=== PATIENT | male | born 1965 | race Caucasian/White ===

== ENCOUNTER 2016-06-29 13:39 | Emergency (ER) | payer MEDICARE, MEDICAID ==
[2016-06-29 14:44] LABS: BASO # 0.1 K/mm3 (0.0-0.2); BASO % 1.1 % (0.0-1.0); EOS # 0.2 K/mm3 (0.0-0.50); EOS % 4.3 % (0.0-3.0); LARGE UNSTAINED CELL # 0.1 K/mm3 (0.0-0.4); LYMPH # 1.2 K/mm3 (1.5-4.5); LYMPH % 22.2 % (24.0-44.0); MEAN CORPUSCULAR HEMOGLOBIN 30.1 pg (27.0-33.0); MEAN CORPUSCULAR HGB CONC 32.6 g/dl (32.0-36.5); MEAN CORPUSCULAR VOLUME 92.5 fl (80.0-96.0); MONO # 0.3 K/mm3 (0.0-0.8); MONO % 4.9 % (0.0-5.0); NEUTROPHILS # 3.5 K/mm3 (1.8-7.7); NEUTROPHILS % 66.4 % (36.0-66.0); PLATELET COUNT, AUTOMATED 115 k/mm3 (150-450); RED CELL DISTRIBUTION WIDTH 14.3 % (11.5-14.5); WHITE BLOOD COUNT 5.3 K/mm3 (4.0-10.0)
[2016-06-29 15:14] LABS: AMPHETAMINES LEVEL URINE NEGATIVE (NEGATIVE); BENZODIAZEPINES URINE POSITIVE (NEGATIVE); COCAINE METABOLITE URINE NEGATIVE (NEGATIVE); CONTROL LINE INT CTR LINE PRESENT; METHADONE URINE NEGATIVE (NEGATIVE); OPIATES URINE NEGATIVE (NEGATIVE); TRICYCLIC ANTIDEPRESS URINE NEGATIVE (NEGATIVE)
[2016-06-29 15:15] LABS: ALBUMIN 3.7 GM/DL (3.2-5.2); ALBUMIN/GLOBULIN RATIO 1.12 (1.00-1.93); ALKALINE PHOSPHATASE 111 U/L (45-117); ALT/SGPT 31 U/L (12-78); ANION GAP 7 MEQ/L (8-16); AST/SGOT 27 U/L (15-37); BILIRUBIN,DIRECT < 0.1 MG/DL (0.0-0.2); BILIRUBIN,TOTAL 0.3 MG/DL (0.2-1.0); BLOOD UREA NITROGEN 13 MG/DL (7-18); CALCIUM LEVEL 8.5 MG/DL (8.5-10.1); CARBON DIOXIDE LEVEL 30 MEQ/L (21-32); CHLORIDE LEVEL 105 MEQ/L (98-107); CREATININE FOR GFR 0.81 MG/DL (0.70-1.30); GLOMERULAR FILTRATION RATE > 60.0 (>56); GLUCOSE, FASTING 93 MG/DL (70-105); POTASSIUM SERUM 4.2 MEQ/L (3.5-5.1); SODIUM LEVEL 142 MEQ/L (136-145)
[2016-06-29] MEDS ORDERED: LORazepam 2 MG/ML VIAL (J2060) As Ordered ONE (15:21)
--- NOTE | 2016-06-29 16:20 | EDDOCDS ---
Physician Documentation [facility] Name: Tyler Mulligan Age: 50 yrs Sex: Male : 1965 Arrival Date: 06/29/2016 Time: 13:39 Bed 9 Private MD: Cristo Rick A. Disposition: 06/29/16 16:01 Discharged to Home/Self Care. Impression: Epilepsy and recurrent seizures. - Condition is Stable. - Discharge Instructions: Seizure, Adult, [id number]. - Medication Reconciliation, Local Pharmacy Hours form. - Follow up: Ly Diaz; When: Call to arrange an appointment; Reason: Continuance of care. - Problem is new. - Symptoms are unchanged. Historical: - Allergies: sulfamyloncream; quell lotion; - Home Meds: 1. Paxil 40 mg Oral tab 1 tab once daily 2. Prilosec 40 mg Oral cpDR 1 cap nightly 3. Mellaril 100 mg Oral tab 1 tab 4 times per day 4. Dulcolax (bisacodyl) 5 mg Oral TbEC 1 tab Q3 days PRN 5. Seroquel 100 mg Oral tab 1 tab daily 6. Ativan 1 mg Oral tab 1 tab four times a day 7. ferrous sulfate 325 mg (65 mg iron) Oral tab 325 mg daily 8. Phenergan 50 mg Oral tab 1 tab every 4 hours as needed 9. Seroquel 300 mg Oral tab 1 tab nightly 10. artane 10 mg twice a day 11. Miralax 17 gram Oral pwpk 1 packet once daily 12. Zyprexa 5 mg Oral tab 1 tab twice a day - PMHx: Anxiety; Depression; mental retardation; profound intellectual disabilities; Seizure Disorder; microencephaly; - PSHx: none; - Social history: Smoking status: unknown if patient ever smoked tobacco. nonverbal . - Family history: Not pertinent. - : The pt / caregiver states he / she is not on anticoagulants. Home medication list is obtained from the facility AUG. - Exposure Risk Screening:: None identified. Vital Signs: 06/29 13:55 BP 121 / 77 (auto/); dsf 13:56 Pulse 84 MON; Pulse Ox 93% ; dsf 14:09 Pulse 76 MON; Resp 20; Pulse Ox 94% on R/A; Pain 0/10; dsf 14:15 Temp 96.4(R); dsf 16:14 BP 115 / 82; Pulse 68; Resp 18; Temp 96.9(TE); Pulse Ox 95% on R/A; kc3 MDM: 14:19 Accucheck ordered. fg 14:19 IV Saline Lock ordered. fg 14:19 Rhythm Strip to chart ordered. fg 14:20 Acetaminophen Level Ordered. EDMS 14:20 CBC with Diff Ordered. EDMS 14:20 Drug Eval Toxicology ED Only Ordered. EDMS 14:20 Liver Profile Ordered. EDMS 14:20 MED Profile Ordered. EDMS 14:20 Salicylate Level Ordered. EDMS 14:20 Thyroid Stimulating Hormone Ordered. EDMS 14:20 Urinalysis Ordered. EDMS 14:20 Urine Culture Ordered. EDMS 14:49 Fingerstick Blood Sugar Ordered. EDMS 15:20 LORazepam 0.5 mg IVP once ordered. fg 15:40 Chest, 1 View Ordered. EDMS 15:53 [facility] Payment Agreement was scanned into [employer] and attached to record. [facility] 15:53 Financial registration complete. [facility] Point of Care Testing: Blood Glucose: 14:29 Blood Glucose: 93 mg/dL; dsf Ranges: Administered Medications: 15:26 Drug: LORazepam 0.5 mg [lorazepam 2 mg/mL injection solution (0.25 mL)] Route: IVP; dsf Site: left antecubital; Signatures: Dispatcher [employer] Fallon Lemus RN RN dsSherie Gauthier RN RN ms18 Rebeka Wills MD MD fg Beck, Gabriela gjb The chart was reviewed and I authenticate all verbal orders and agree with the evaluation and treatment provided.Attachments: 15:53 [facility] Payment Agreement [facility] MTDD
--- NOTE | 2016-06-29 16:20 | EDDOCDS ---
Nurse's Notes [facility] Name: Tyler Mulligan Age: 50 yrs Sex: Male : 1965 Arrival Date: 06/29/2016 Time: 13:39 Bed 9 Private MD: Cristo Rick A. Diagnosis: Epilepsy and recurrent seizures Presentation: 06/29 13:45 Presenting complaint: EMS states: pt has a HX of seizure. according to children's zoo caretaker pt dsf has not had a seizure in 20 years and does not take any medication for it. pt did have 2 seizures. EMS gave versed 5 mg. intranasally no seizure activity since then. FSBS 126. Suicide/Homicide risk assessment- the patient denies having any suicidal and/or homicidal ideations and does not present with any other emotional, behavioral or mental health complaints. Status: Patient is not a service supervisor or dependent. Transition of care: patient was not received from another setting of care. Care prior to arrival: See EMS report. Medications administered prior to arrival: versed 5 mg Saline lock initiated. Glucose check. 126. 13:45 Acuity: CHANNING Level 3 dsf 13:45 Method Of Arrival: Ambulance dsf 16:18 Adult Sepsis Screening: The patient does not have new or worsening altered mentation. ms18 Patient's respiratory rate is less than 22. Systolic blood pressure is greater than 100. Patient has a qSOFA score of 0- Negative Sepsis Screen. Triage Assessment: 13:49 General: Appears in no apparent distress, Behavior is postictal . Pain: Unable to use dsf pain scale. Does not appear to understand pain scale. FLACC scale score is 0 out of 10. HIV screening NA for this visit Offered previously. 13:49 The patient is triaged at the bedside. See Assessment in Nurses Notes section of ED dsf record. Neurological: Level of Consciousness is lethargic. Cardiovascular: Capillary refill < 3 seconds Heart tones S1 S2 present. Respiratory: Airway is patent Respiratory effort is even, unlabored, Respiratory pattern is regular, symmetrical, Breath sounds are clear bilaterally. GI: Abdomen is non- distended Bowel sounds present X 4 quads. Abd is soft and non tender X 4 quads. Derm: Skin is pink, warm & dry. Historical: - Allergies: sulfamyloncream; quell lotion; - Home Meds: 1. Paxil 40 mg Oral tab 1 tab once daily 2. Prilosec 40 mg Oral cpDR 1 cap nightly 3. Mellaril 100 mg Oral tab 1 tab 4 times per day 4. Dulcolax (bisacodyl) 5 mg Oral TbEC 1 tab Q3 days PRN 5. Seroquel 100 mg Oral tab 1 tab daily 6. Ativan 1 mg Oral tab 1 tab four times a day 7. ferrous sulfate 325 mg (65 mg iron) Oral tab 325 mg daily 8. Phenergan 50 mg Oral tab 1 tab every 4 hours as needed 9. Seroquel 300 mg Oral tab 1 tab nightly 10. artane 10 mg twice a day 11. Miralax 17 gram Oral pwpk 1 packet once daily 12. Zyprexa 5 mg Oral tab 1 tab twice a day - PMHx: Anxiety; Depression; mental retardation; profound intellectual disabilities; Seizure Disorder; microencephaly; - PSHx: none; - Social history: Smoking status: unknown if patient ever smoked tobacco. nonverbal . - Family history: Not pertinent. - : The pt / caregiver states he / she is not on anticoagulants. Home medication list is obtained from the facility AUG. - Exposure Risk Screening:: None identified. Screenin:16 Screening information is obtained from the caregiver, residence staff. Fall risk: At ms18 risk due to apparent cognitive impairment. Assistance ADL's: Requires assistance with. Abuse/DV Screen: The patient / caregiver reports he/she is: not in a situation that causes fear, pain or injury. Nutritional screening: No deficits noted. Advance Directives: Currently, there is a health care proxy, JRC. home support is adequate. Assessment: 13:49 General: see triage assessment . dsf 14:31 General: Appears in no apparent distress, to be sleeping. Neurological:. dsf Cardiovascular: Capillary refill < 3 seconds. Respiratory: Airway is patent Respiratory effort is even, unlabored, Respiratory pattern is regular, symmetrical. Derm: Skin is pink, warm & dry. 15:26 General: pt agitated ripping things off trying to kick staff. New orders received from f Dr. Wills. 15:40 Adult Sepsis Screening: The patient does not have new or worsening altered mentation. dsf Patient's respiratory rate is less than 22. Systolic blood pressure is greater than 100. Patient has a qSOFA score of 0- Negative Sepsis Screen. General: Pt more relaxed and resting quietly. respirations easy and unlabored. [facility] staff member at bedside . 16:16 General: Appears in no apparent distress, comfortable, Behavior is cooperative, quiet. ms18 Pain: Unable to use pain scale. Does not appear to understand pain scale. Neurological: Level of Consciousness is awake, alert. Respiratory: Airway is patent Respiratory effort is even, unlabored. Derm: Skin is pink, warm & dry. Vital Signs: 13:55 BP 121 / 77 (auto/); dsf 13:56 Pulse 84 MON; Pulse Ox 93% ; dsf 14:09 Pulse 76 MON; Resp 20; Pulse Ox 94% on R/A; Pain 0/10; dsf 14:15 Temp 96.4(R); dsf 16:14 BP 115 / 82; Pulse 68; Resp 18; Temp 96.9(TE); Pulse Ox 95% on R/A; kc3 Vitals: 13:49 Log In Time N/A - ambulance arrival. dsf ED Course: 13:40 Patient visited by Cecil Barrientos PCA. jrd 13:40 Estefani Jara,RN is Primary Nurse. jrd 13:40 Patient moved to Waiting jrd 13:40 Patient moved to 9 jrd 13:41 Cristo Rick is Private Physician. jrd 13:49 Triage Initiated dsf 13:51 The patient / caregiver is instructed regarding the plan of care and ED course. Patient dsf has correct armband on for positive identification. Placed in gown. Bed in low position. Call light in reach. Side rails up X2. shelter monitor on. Pulse ox on. NIBP on. 13:51 Seizure precautions initiated. dsf 13:51 Maintain field IV. Dressing intact. Good blood return noted. Site clean & dry. Gauge & dsf site: #18 gauge LAC. 14:18 Rebeka Wills MD is Attending Physician. fg 14:31 Patient visited by Fallon Sheldon RN. dsf 14:40 Patient visited by Rebeka Wills MD. fg 14:43 Urine Culture Sent. dsf 14:43 Urinalysis Sent. dsf 14:43 Drug Eval Toxicology ED Only Sent. dsf 15:41 Patient visited by Sherie Cormier RN. ms18 15:41 Patient visited by Fallon Sheldon RN. dsf 15:53 [facility] Payment Agreement was scanned into [employer] and attached to record. gjb 16:00 Ly Diaz is Referral Physician. fg 16:16 Property :Personal belongings accompany Pt. ms18 16:16 Discontinued IV lock intact, bleeding controlled, pressure dressing applied, No ms18 redness/swelling at site. No procedures done that require assistance. Administered Medications: 15:26 Drug: LORazepam 0.5 mg [lorazepam 2 mg/mL injection solution (0.25 mL)] Route: IVP; dsf Site: left antecubital; Point of Care Testing: Blood Glucose: 14:29 Blood Glucose: 93 mg/dL; dsf Ranges: Order Results: Lab Order: Acetaminophen Level; SPEC'M 06/29/16 14:33 Test: ACETAMINOPHEN LEVEL; Value: < 2.0; Range: 10.0-30.0; Abnormal: Below low normal; Units: UG/ML; Status: F Lab Order: CBC with Diff; SPEC'M 06/29/16 14:33 Test: WHITE BLOOD COUNT; Value: 5.3; Range: 4.0-10.0; Units: K/mm3; Status: F Test: RED BLOOD COUNT; Value: 4.24; Range: 4.30-6.10; Abnormal: Below low normal; Units: M/mm3; Status: F Test: HEMOGLOBIN; Value: 12.8; Range: 14.0-18.0; Abnormal: Below low normal; Units: g/dl; Status: F Test: HEMATOCRIT; Value: 39.3; Range: 42.0-52.0; Abnormal: Below low normal; Units: %; Status: F Test: MEAN CORPUSCULAR VOLUME; Value: 92.5; Range: 80.0-96.0; Units: fl; Status: F Test: MEAN CORPUSCULAR HEMOGLOBIN; Value: 30.1; Range: 27.0-33.0; Units: pg; Status: F Test: MEAN CORPUSCULAR HGB CONC; Value: 32.6; Range: 32.0-36.5; Units: g/dl; Status: F Test: RED CELL DISTRIBUTION WIDTH; Value: 14.3; Range: 11.5-14.5; Units: %; Status: F Test: PLATELET COUNT, AUTOMATED; Value: 115; Range: 150-450; Abnormal: Below low normal; Units: k/mm3; Status: F Test: NEUTROPHILS %; Value: 66.4; Range: 36.0-66.0; Abnormal: Above high normal; Units: %; Status: F Test: LYMPH %; Value: 22.2; Range: 24.0-44.0; Abnormal: Below low normal; Units: %; Status: F Test: MONO %; Value: 4.9; Range: 0.0-5.0; Units: %; Status: F Test: EOS %; Value: 4.3; Range: 0.0-3.0; Abnormal: Above high normal; Units: %; Status: F Test: BASO %; Value: 1.1; Range: 0.0-1.0; Abnormal: Above high normal; Units: %; Status: F Test: LARGE UNSTAINED CELL %; Value: 1.0; Range: 0.0-4.0; Units: %; Status: F Test: NEUTROPHILS #; Value: 3.5; Range: 1.8-7.7; Units: K/mm3; Status: F Test: LYMPH #; Value: 1.2; Range: 1.5-4.5; Abnormal: Below low normal; Units: K/mm3; Status: F Test: MONO #; Value: 0.3; Range: 0.0-0.8; Units: K/mm3; Status: F Test: EOS #; Value: 0.2; Range: 0.0-0.50; Units: K/mm3; Status: F Test: BASO #; Value: 0.1; Range: 0.0-0.2; Units: K/mm3; Status: F Test: LARGE UNSTAINED CELL #; Value: 0.1; Range: 0.0-0.4; Units: K/mm3; Status: F Lab Order: Drug Eval Toxicology ED Only; SPEC'M 06/29/16 14:42 Test: AMPHETAMINES LEVEL URINE; Value: NEGATIVE; Range: NEGATIVE; Status: F Test: BARBITURATES URINE; Value: NEGATIVE; Range: NEGATIVE; Status: F Test: BENZODIAZEPINES URINE; Value: POSITIVE; Range: NEGATIVE; Abnormal: Above high normal; Status: F Test: CANNABINOIDS URINE; Value: NEGATIVE; Range: NEGATIVE; Status: F Test: COCAINE METABOLITE URINE; Value: NEGATIVE; Range: NEGATIVE; Status: F Test: METHADONE URINE; Value: NEGATIVE; Range: NEGATIVE; Status: F Test: OPIATES URINE; Value: NEGATIVE; Range: NEGATIVE; Status: F Test: TRICYCLIC ANTIDEPRESS URINE; Value: NEGATIVE; Range: NEGATIVE; Status: F Test Note: ; ALL PRESUMPTIVE POSITIVE FINDINGS ARE UNCONFIRMED NORMAL VALUES THRESHOLD IN NG/ML AMPHETAMINES 1000 METHAMPHETAMINES 1000 BARBITURATES 300 BENZODIAZEPINES 300 CANNABINOIDS (THC) 50 COCAINE METABOLITE 300 METHADONE 300 OPIATES 300 PHENCYCLIDINE 25 TRICYCLIC ANTIDEPRESSANTS 1000 RESULTS ARE FOR MEDICAL PURPOSES ONLY. ALL URINE SPECIMENS WILL BE SAVED FOR 3 DAYS. IF CONFIRMATION OF A PRESUMPTIVE POSTIVE SCREEN RESULT IS DESIRED, CALL CHEMISTRY ([phone]) AND REQUEST URINE TO BE SENT TO REFERENCE LAB. FOR A LIST OF CLOSELY RELATED COMPOUNDS PLEASE CALL THE LAB. Lab Order: Liver Profile; SPEC'M 06/29/16 14:33 Test: AST/SGOT; Value: 27; Range: 15-37; Units: U/L; Status: F Test: ALT/SGPT; Value: 31; Range: 12-78; Units: U/L; Status: F Test: ALKALINE PHOSPHATASE; Value: 111; Range: 45-117; Units: U/L; Status: F Test: BILIRUBIN,TOTAL; Value: 0.3; Range: 0.2-1.0; Units: MG/DL; Status: F Test: BILIRUBIN,DIRECT; Value: < 0.1; Range: 0.0-0.2; Units: MG/DL; Status: F Test: TOTAL PROTEIN; Value: 7.0; Range: 6.4-8.2; Units: GM/DL; Status: F Test: ALBUMIN; Value: 3.7; Range: 3.2-5.2; Units: GM/DL; Status: F Test: ALBUMIN/GLOBULIN RATIO; Value: 1.12; Range: 1.00-1.93; Status: F Lab Order: MED Profile; SPEC'M 06/29/16 14:33 Test: GLUCOSE, FASTING; Value: 93; Range: 70-105; Units: MG/DL; Status: F Test: BLOOD UREA NITROGEN; Value: 13; Range: 7-18; Units: MG/DL; Status: F Test: CREATININE FOR GFR; Value: 0.81; Range: 0.70-1.30; Units: MG/DL; Status: F Test: GLOMERULAR FILTRATION RATE; Value: > 60.0; Range: >56; Status: F Test: SODIUM LEVEL; Value: 142; Range: 136-145; Units: MEQ/L; Status: F Test: POTASSIUM SERUM; Value: 4.2; Range: 3.5-5.1; Units: MEQ/L; Status: F Test: CHLORIDE LEVEL; Value: 105; Range: 98-107; Units: MEQ/L; Status: F Test: CARBON DIOXIDE LEVEL; Value: 30; Range: 21-32; Units: MEQ/L; Status: F Test: ANION GAP; Value: 7; Range: 8-16; Abnormal: Below low normal; Units: MEQ/L; Status: F Test: CALCIUM LEVEL; Value: 8.5; Range: 8.5-10.1; Units: MG/DL; Status: F Test Note: ; Units are mL/min/1.73 m2 Chronic Kidney Disease Staging per NKF: Stage I & II GFR >=60 Normal to Mildly Decreased Stage III GFR 30-59 Moderately Decreased Stage IV GFR 15-29 Severely Decreased Stage V GFR <15 Very Little GFR Left ESRD GFR <15 on NAILER HAND Lab Order: Salicylate Level; SPEC'M 06/29/16 14:33 Test: SALICYLATE LEVEL; Value: < 1.7; Range: 5.0-30.0; Abnormal: Below low normal; Units: MG/DL; Status: F Lab Order: Thyroid Stimulating Hormone; SPEC'M 06/29/16 14:33 Test: THYROID STIMULATING HORMONE; Value: 1.740; Range: 0.358-3.740; Units: uIU/ML; Status: F Lab Order: Urinalysis; SPEC'M 06/29/16 14:42 Test: APPEARANCE, URINE; Value: CLEAR; Range: CLEAR; Status: F Test: COLOR, URINE; Value: STRAW; Range: YELLOW; Status: F Test: PH,URINE; Value: 6.0; Range: 5.0-9.0; Units: UNITS; Status: F Test: SPECIFIC GRAVITY URINE AUTO; Value: 1.005; Range: 1.002-1.035; Status: F Test: PROTEIN, URINE AUTO; Value: NEGATIVE; Range: NEGATIVE; Units: mg/dL; Status: F Test: GLUCOSE, URINE (UA) AUTO; Value: NEGATIVE; Range: NEGATIVE; Units: mg/dL; Status: F Test: KETONE, URINE AUTO; Value: NEGATIVE; Range: NEGATIVE; Units: mg/dL; Status: F Test: UROBILINOGEN, URINE AUTO; Value: 0.2; Range: 0.0-2.0; Units: mg/dL; Status: F Test: BILIRUBIN, URINE AUTO; Value: NEGATIVE; Range: NEGATIVE; Status: F Test: NITRITE, URINE AUTO; Value: NEGATIVE; Range: NEGATIVE; Status: F Test: LEUKOCYTE ESTERASE, URINE AUTO; Value: NEGATIVE; Range: NEGATIVE; Status: F Test: BLOOD, URINE BLOOD; Value: NEGATIVE; Range: NEGATIVE; Status: F Test: WBC, URINE AUTO; Value: 0; Range: 0-3; Units: /HPF; Status: F Test: RBC, URINE AUTO; Value: 0; Range: 0-3; Units: /HPF; Status: F Test: BACTERIA, URINE AUTO; Value: NEGATIVE; Range: NEGATIVE; Status: F Test: SQUAMOUS EPITHELIAL CELL UR AU; Value: 0; Range: 0-6; Units: /HPF; Status: F Test: HYALINE CAST, URINE AUTO; Value: 0; Range: 0-1; Units: /LPF; Status: F Lab Order: Fingerstick Blood Sugar; SPEC'M 06/29/16 14:29 Test: BEDSIDE GLUCOSE; Value: 93; Range: 70-105; Units: MG/DL; Status: F Outcome: 16:01 Discharge ordered by Provider. fg 16:16 Discharge Assessment: Patient awake and alert. patient administered narcotics - no. The ms18 following High Risk Discharge criteria are identified: None. Discharged to Extended Care Facility [facility]. Condition: good Condition: stable Condition: improved. Discharge instructions given to aircraft cabin cleaner, Instructed on discharge instructions, follow up and referral plans. Demonstrated understanding of instructions, Pt was receptive of discharge instructions/ teaching. CT Study completed. 16:19 Patient left the ED. ms18 Signatures: Fallon Sheldon RN RN dsf Smith, Mallory, RN RN ms18 Cecil Barrientos, [employer]EF[employer] ADVISOR Rebeka Hyde MD MD fg Crane,Josie,LESTER RN [id number] Rosa Barreto Corrections: (The following items were deleted from the chart) 13:50 13:45 Presenting complaint: EMS states: pt has a HX of seizure. according to children's zoo caretaker dsf pt has not had a seizure in 20 years and they stop his seizures mediation some time ago. pt did have 2 seizures. EMS gave versed 5 mg. intranasally no seizure activity since then. FSBS 126. dsf 13:51 13:49 General: Appears in no apparent distress, Behavior is lethargic. dsf dsf MTDD
--- NOTE | 2016-06-29 16:58 | REP ---
PORTABLE CHEST: AP portable view of the chest is performed. There is no prior study. There are low lung volumes with crowding of lung markings bilaterally. No consolidation is seen. Cardiomediastinal silhouette is grossly unremarkable but the study is limited due to patient rotation. Signed by Hilario Liao MD 06/30/2016 12:45 P
--- NOTE | 2016-07-01 17:20 | EDDOCDS ---
Nurse's Notes [facility] Name: Tyler Mulligan Age: 50 yrs Sex: Male : 1965 Arrival Date: 06/29/2016 Time: 13:39 Bed 9 Private MD: Cristo Rick A. Diagnosis: Epilepsy and recurrent seizures Presentation: 06/29 13:45 Presenting complaint: EMS states: pt has a HX of seizure. according to critical care specialist pt dsf has not had a seizure in 20 years and does not take any medication for it. pt did have 2 seizures. EMS gave versed 5 mg. intranasally no seizure activity since then. FSBS 126. Suicide/Homicide risk assessment- the patient denies having any suicidal and/or homicidal ideations and does not present with any other emotional, behavioral or mental health complaints. Status: Patient is not a shared services and outsourcing manager or dependent. Transition of care: patient was not received from another setting of care. Care prior to arrival: See EMS report. Medications administered prior to arrival: versed 5 mg Saline lock initiated. Glucose check. 126. 13:45 Acuity: CHANNING Level 3 dsf 13:45 Method Of Arrival: Ambulance dsf 16:18 Adult Sepsis Screening: The patient does not have new or worsening altered mentation. ms18 Patient's respiratory rate is less than 22. Systolic blood pressure is greater than 100. Patient has a qSOFA score of 0- Negative Sepsis Screen. Triage Assessment: 13:49 General: Appears in no apparent distress, Behavior is postictal . Pain: Unable to use dsf pain scale. Does not appear to understand pain scale. FLACC scale score is 0 out of 10. HIV screening NA for this visit Offered previously. 13:49 The patient is triaged at the bedside. See Assessment in Nurses Notes section of ED dsf record. Neurological: Level of Consciousness is lethargic. Cardiovascular: Capillary refill < 3 seconds Heart tones S1 S2 present. Respiratory: Airway is patent Respiratory effort is even, unlabored, Respiratory pattern is regular, symmetrical, Breath sounds are clear bilaterally. GI: Abdomen is non- distended Bowel sounds present X 4 quads. Abd is soft and non tender X 4 quads. Derm: Skin is pink, warm & dry. Historical: - Allergies: sulfamyloncream; quell lotion; - Home Meds: 1. Paxil 40 mg Oral tab 1 tab once daily 2. Prilosec 40 mg Oral cpDR 1 cap nightly 3. Mellaril 100 mg Oral tab 1 tab 4 times per day 4. Dulcolax (bisacodyl) 5 mg Oral TbEC 1 tab Q3 days PRN 5. Seroquel 100 mg Oral tab 1 tab daily 6. Ativan 1 mg Oral tab 1 tab four times a day 7. ferrous sulfate 325 mg (65 mg iron) Oral tab 325 mg daily 8. Phenergan 50 mg Oral tab 1 tab every 4 hours as needed 9. Seroquel 300 mg Oral tab 1 tab nightly 10. artane 10 mg twice a day 11. Miralax 17 gram Oral pwpk 1 packet once daily 12. Zyprexa 5 mg Oral tab 1 tab twice a day - PMHx: Anxiety; Depression; mental retardation; profound intellectual disabilities; Seizure Disorder; microencephaly; - PSHx: none; - Social history: Smoking status: unknown if patient ever smoked tobacco. nonverbal . - Family history: Not pertinent. - : The pt / caregiver states he / she is not on anticoagulants. Home medication list is obtained from the facility AUG. - Exposure Risk Screening:: None identified. Screenin:16 Screening information is obtained from the caregiver, residence staff. Fall risk: At ms18 risk due to apparent cognitive impairment. Assistance ADL's: Requires assistance with. Abuse/DV Screen: The patient / caregiver reports he/she is: not in a situation that causes fear, pain or injury. Nutritional screening: No deficits noted. Advance Directives: Currently, there is a health care proxy, JRC. home support is adequate. Assessment: 13:49 General: see triage assessment . dsf 14:31 General: Appears in no apparent distress, to be sleeping. Neurological:. dsf Cardiovascular: Capillary refill < 3 seconds. Respiratory: Airway is patent Respiratory effort is even, unlabored, Respiratory pattern is regular, symmetrical. Derm: Skin is pink, warm & dry. 15:26 General: pt agitated ripping things off trying to kick staff. New orders received from f Dr. Wills. 15:40 Adult Sepsis Screening: The patient does not have new or worsening altered mentation. dsf Patient's respiratory rate is less than 22. Systolic blood pressure is greater than 100. Patient has a qSOFA score of 0- Negative Sepsis Screen. General: Pt more relaxed and resting quietly. respirations easy and unlabored. [facility] staff member at bedside . 16:16 General: Appears in no apparent distress, comfortable, Behavior is cooperative, quiet. ms18 Pain: Unable to use pain scale. Does not appear to understand pain scale. Neurological: Level of Consciousness is awake, alert. Respiratory: Airway is patent Respiratory effort is even, unlabored. Derm: Skin is pink, warm & dry. Vital Signs: 13:55 BP 121 / 77 (auto/); dsf 13:56 Pulse 84 MON; Pulse Ox 93% ; dsf 14:09 Pulse 76 MON; Resp 20; Pulse Ox 94% on R/A; Pain 0/10; dsf 14:15 Temp 96.4(R); dsf 16:14 BP 115 / 82; Pulse 68; Resp 18; Temp 96.9(TE); Pulse Ox 95% on R/A; kc3 Vitals: 13:49 Log In Time N/A - ambulance arrival. dsf ED Course: 13:40 Patient visited by Cecil Barrientos PCA. jrd 13:40 Estefani Jara,RN is Primary Nurse. jrd 13:40 Patient moved to Waiting jrd 13:40 Patient moved to 9 jrd 13:41 Cristo Rick is Private Physician. jrd 13:49 Triage Initiated dsf 13:51 The patient / caregiver is instructed regarding the plan of care and ED course. Patient dsf has correct armband on for positive identification. Placed in gown. Bed in low position. Call light in reach. Side rails up X2. classroom monitor on. Pulse ox on. NIBP on. 13:51 Seizure precautions initiated. dsf 13:51 Maintain field IV. Dressing intact. Good blood return noted. Site clean & dry. Gauge & dsf site: #18 gauge LAC. 14:18 Rebeka Wills MD is Attending Physician. fg 14:31 Patient visited by Fallon Sheldon RN. dsf 14:40 Patient visited by Rebeka Wills MD. fg 14:43 Urine Culture Sent. dsf 14:43 Urinalysis Sent. dsf 14:43 Drug Eval Toxicology ED Only Sent. dsf 15:41 Patient visited by Sherie Cormier RN. ms18 15:41 Patient visited by Fallon Sheldon RN. dsf 15:53 [facility] [place] Payment Agreement was scanned into [email or web address] and attached to record. gjb 16:00 Ly Diaz is Referral Physician. fg 16:16 Property :Personal belongings accompany Pt. ms18 16:16 Discontinued IV lock intact, bleeding controlled, pressure dressing applied, No ms18 redness/swelling at site. No procedures done that require assistance. 17:13 Chest, 1 View Returned. EDMS 06/30 11:22 T-Sheet-- Draft Copy was scanned into [email or web address] and attached to record. gb Administered Medications: 06/29 15: Drug: LORazepam 0.5 mg [lorazepam 2 mg/mL injection solution (0.25 mL)] Route: IVP; dsf Site: left antecubital; Point of Care Testing: Blood Glucose: 14:29 Blood Glucose: 93 mg/dL; dsf Ranges: Order Results: Lab Order: Acetaminophen Level; SPEC'M 06/29/16 14:33 Test: ACETAMINOPHEN LEVEL; Value: < 2.0; Range: 10.0-30.0; Abnormal: Below low normal; Units: UG/ML; Status: F Lab Order: CBC with Diff; SPEC'M 06/29/16 14:33 Test: WHITE BLOOD COUNT; Value: 5.3; Range: 4.0-10.0; Units: K/mm3; Status: F Test: RED BLOOD COUNT; Value: 4.24; Range: 4.30-6.10; Abnormal: Below low normal; Units: M/mm3; Status: F Test: HEMOGLOBIN; Value: 12.8; Range: 14.0-18.0; Abnormal: Below low normal; Units: g/dl; Status: F Test: HEMATOCRIT; Value: 39.3; Range: 42.0-52.0; Abnormal: Below low normal; Units: %; Status: F Test: MEAN CORPUSCULAR VOLUME; Value: 92.5; Range: 80.0-96.0; Units: fl; Status: F Test: MEAN CORPUSCULAR HEMOGLOBIN; Value: 30.1; Range: 27.0-33.0; Units: pg; Status: F Test: MEAN CORPUSCULAR HGB CONC; Value: 32.6; Range: 32.0-36.5; Units: g/dl; Status: F Test: RED CELL DISTRIBUTION WIDTH; Value: 14.3; Range: 11.5-14.5; Units: %; Status: F Test: PLATELET COUNT, AUTOMATED; Value: 115; Range: 150-450; Abnormal: Below low normal; Units: k/mm3; Status: F Test: NEUTROPHILS %; Value: 66.4; Range: 36.0-66.0; Abnormal: Above high normal; Units: %; Status: F Test: LYMPH %; Value: 22.2; Range: 24.0-44.0; Abnormal: Below low normal; Units: %; Status: F Test: MONO %; Value: 4.9; Range: 0.0-5.0; Units: %; Status: F Test: EOS %; Value: 4.3; Range: 0.0-3.0; Abnormal: Above high normal; Units: %; Status: F Test: BASO %; Value: 1.1; Range: 0.0-1.0; Abnormal: Above high normal; Units: %; Status: F Test: LARGE UNSTAINED CELL %; Value: 1.0; Range: 0.0-4.0; Units: %; Status: F Test: NEUTROPHILS #; Value: 3.5; Range: 1.8-7.7; Units: K/mm3; Status: F Test: LYMPH #; Value: 1.2; Range: 1.5-4.5; Abnormal: Below low normal; Units: K/mm3; Status: F Test: MONO #; Value: 0.3; Range: 0.0-0.8; Units: K/mm3; Status: F Test: EOS #; Value: 0.2; Range: 0.0-0.50; Units: K/mm3; Status: F Test: BASO #; Value: 0.1; Range: 0.0-0.2; Units: K/mm3; Status: F Test: LARGE UNSTAINED CELL #; Value: 0.1; Range: 0.0-0.4; Units: K/mm3; Status: F Lab Order: Drug Eval Toxicology ED Only; SPEC'M 06/29/16 14:42 Test: AMPHETAMINES LEVEL URINE; Value: NEGATIVE; Range: NEGATIVE; Status: F Test: BARBITURATES URINE; Value: NEGATIVE; Range: NEGATIVE; Status: F Test: BENZODIAZEPINES URINE; Value: POSITIVE; Range: NEGATIVE; Abnormal: Above high normal; Status: F Test: CANNABINOIDS URINE; Value: NEGATIVE; Range: NEGATIVE; Status: F Test: COCAINE METABOLITE URINE; Value: NEGATIVE; Range: NEGATIVE; Status: F Test: METHADONE URINE; Value: NEGATIVE; Range: NEGATIVE; Status: F Test: OPIATES URINE; Value: NEGATIVE; Range: NEGATIVE; Status: F Test: TRICYCLIC ANTIDEPRESS URINE; Value: NEGATIVE; Range: NEGATIVE; Status: F Test Note: ; ALL PRESUMPTIVE POSITIVE FINDINGS ARE UNCONFIRMED NORMAL VALUES THRESHOLD IN NG/ML AMPHETAMINES 1000 METHAMPHETAMINES 1000 BARBITURATES 300 BENZODIAZEPINES 300 CANNABINOIDS (THC) 50 COCAINE METABOLITE 300 METHADONE 300 OPIATES 300 PHENCYCLIDINE 25 TRICYCLIC ANTIDEPRESSANTS 1000 RESULTS ARE FOR MEDICAL PURPOSES ONLY. ALL URINE SPECIMENS WILL BE SAVED FOR 3 DAYS. IF CONFIRMATION OF A PRESUMPTIVE POSTIVE SCREEN RESULT IS DESIRED, CALL CHEMISTRY ([phone]) AND REQUEST URINE TO BE SENT TO REFERENCE LAB. FOR A LIST OF CLOSELY RELATED COMPOUNDS PLEASE CALL THE LAB. Lab Order: Liver Profile; SPEC'M 06/29/16 14:33 Test: AST/SGOT; Value: 27; Range: 15-37; Units: U/L; Status: F Test: ALT/SGPT; Value: 31; Range: 12-78; Units: U/L; Status: F Test: ALKALINE PHOSPHATASE; Value: 111; Range: 45-117; Units: U/L; Status: F Test: BILIRUBIN,TOTAL; Value: 0.3; Range: 0.2-1.0; Units: MG/DL; Status: F Test: BILIRUBIN,DIRECT; Value: < 0.1; Range: 0.0-0.2; Units: MG/DL; Status: F Test: TOTAL PROTEIN; Value: 7.0; Range: 6.4-8.2; Units: GM/DL; Status: F Test: ALBUMIN; Value: 3.7; Range: 3.2-5.2; Units: GM/DL; Status: F Test: ALBUMIN/GLOBULIN RATIO; Value: 1.12; Range: 1.00-1.93; Status: F Lab Order: MED Profile; SPEC'M 06/29/16 14:33 Test: GLUCOSE, FASTING; Value: 93; Range: 70-105; Units: MG/DL; Status: F Test: BLOOD UREA NITROGEN; Value: 13; Range: 7-18; Units: MG/DL; Status: F Test: CREATININE FOR GFR; Value: 0.81; Range: 0.70-1.30; Units: MG/DL; Status: F Test: GLOMERULAR FILTRATION RATE; Value: > 60.0; Range: >56; Status: F Test: SODIUM LEVEL; Value: 142; Range: 136-145; Units: MEQ/L; Status: F Test: POTASSIUM SERUM; Value: 4.2; Range: 3.5-5.1; Units: MEQ/L; Status: F Test: CHLORIDE LEVEL; Value: 105; Range: 98-107; Units: MEQ/L; Status: F Test: CARBON DIOXIDE LEVEL; Value: 30; Range: 21-32; Units: MEQ/L; Status: F Test: ANION GAP; Value: 7; Range: 8-16; Abnormal: Below low normal; Units: MEQ/L; Status: F Test: CALCIUM LEVEL; Value: 8.5; Range: 8.5-10.1; Units: MG/DL; Status: F Test Note: ; Units are mL/min/1.73 m2 Chronic Kidney Disease Staging per NKF: Stage I & II GFR >=60 Normal to Mildly Decreased Stage III GFR 30-59 Moderately Decreased Stage IV GFR 15-29 Severely Decreased Stage V GFR <15 Very Little GFR Left ESRD GFR <15 on OFFICE REP Lab Order: Salicylate Level; SPEC'M 06/29/16 14:33 Test: SALICYLATE LEVEL; Value: < 1.7; Range: 5.0-30.0; Abnormal: Below low normal; Units: MG/DL; Status: F Lab Order: Thyroid Stimulating Hormone; SPEC'M 06/29/16 14:33 Test: THYROID STIMULATING HORMONE; Value: 1.740; Range: 0.358-3.740; Units: uIU/ML; Status: F Lab Order: Urinalysis; SPEC'M 06/29/16 14:42 Test: APPEARANCE, URINE; Value: CLEAR; Range: CLEAR; Status: F Test: COLOR, URINE; Value: STRAW; Range: YELLOW; Status: F Test: PH,URINE; Value: 6.0; Range: 5.0-9.0; Units: UNITS; Status: F Test: SPECIFIC GRAVITY URINE AUTO; Value: 1.005; Range: 1.002-1.035; Status: F Test: PROTEIN, URINE AUTO; Value: NEGATIVE; Range: NEGATIVE; Units: mg/dL; Status: F Test: GLUCOSE, URINE (UA) AUTO; Value: NEGATIVE; Range: NEGATIVE; Units: mg/dL; Status: F Test: KETONE, URINE AUTO; Value: NEGATIVE; Range: NEGATIVE; Units: mg/dL; Status: F Test: UROBILINOGEN, URINE AUTO; Value: 0.2; Range: 0.0-2.0; Units: mg/dL; Status: F Test: BILIRUBIN, URINE AUTO; Value: NEGATIVE; Range: NEGATIVE; Status: F Test: NITRITE, URINE AUTO; Value: NEGATIVE; Range: NEGATIVE; Status: F Test: LEUKOCYTE ESTERASE, URINE AUTO; Value: NEGATIVE; Range: NEGATIVE; Status: F Test: BLOOD, URINE BLOOD; Value: NEGATIVE; Range: NEGATIVE; Status: F Test: WBC, URINE AUTO; Value: 0; Range: 0-3; Units: /HPF; Status: F Test: RBC, URINE AUTO; Value: 0; Range: 0-3; Units: /HPF; Status: F Test: BACTERIA, URINE AUTO; Value: NEGATIVE; Range: NEGATIVE; Status: F Test: SQUAMOUS EPITHELIAL CELL UR AU; Value: 0; Range: 0-6; Units: /HPF; Status: F Test: HYALINE CAST, URINE AUTO; Value: 0; Range: 0-1; Units: /LPF; Status: F Lab Order: Urine Culture; SPEC'M 06/29/16 14:42 Test: URINE CULTURE; Value: <EXTERNAL COMMENT eCWMed> FULL REPORT IN LAB NOTES (eCW and Medent).; Status: F Test: URINE CULTURE; Value: URINE CULTURE RESULT NO GROWTH; Status: F Lab Order: Fingerstick Blood Sugar; SPEC'M 06/29/16 14:29 Test: BEDSIDE GLUCOSE; Value: 93; Range: 70-105; Units: MG/DL; Status: F Radiology Order: Chest, 1 View Test: Chest, 1 View REASON FOR EXAMINATION: Chest Pain; PORTABLE CHEST:; ; AP portable view of the chest is performed. There is no prior study. There are; low lung volumes with crowding of lung markings bilaterally. No consolidation is; seen. Cardiomediastinal silhouette is grossly unremarkable but the study is; limited due to patient rotation.; ; ; Signed by; Hilario Liao MD 06/30/2016 12:45 P; Outcome: 16:01 Discharge ordered by Provider. fg 16:16 Discharge Assessment: Patient awake and alert. patient administered narcotics - no. The ms18 following High Risk Discharge criteria are identified: None. Discharged to [facility]. Condition: good Condition: stable Condition: improved. Discharge instructions given to general manager in training, Instructed on discharge instructions, follow up and referral plans. Demonstrated understanding of instructions, Pt was receptive of discharge instructions/ teaching. CT Study completed. 16:19 Patient left the ED. ms18 Signatures: Dispatcher [employer] EDMS Vikki Marie, Reg Reg Fallon AnnaRN RN dsf Sherie Cormier RN RN ms18 Cecil Barrientos, BRUNA LEGAL BILLER Rebeka Hyde MD MD Josie Arriaga RN RN kc3 Rosa Barreto Corrections: (The following items were deleted from the chart) 13:50 13:45 Presenting complaint: EMS states: pt has a HX of seizure. according to critical care specialist dsf pt has not had a seizure in 20 years and they stop his seizures mediation some time ago. pt did have 2 seizures. EMS gave versed 5 mg. intranasally no seizure activity since then. FSBS 126. dsf 13:51 13:49 General: Appears in no apparent distress, Behavior is lethargic. dsf dsf Chart Complete MTDD
--- NOTE | 2016-07-01 17:20 | EDDOCDS ---
Physician Documentation [facility] Name: Tyler Mulligan Age: 50 yrs Sex: Male : 1965 Arrival Date: 06/29/2016 Time: 13:39 Bed 9 Private MD: Cristo Rick A. Disposition: 06/29/16 16:01 Discharged to Home/Self Care. Impression: Epilepsy and recurrent seizures. - Condition is Stable. - Discharge Instructions: Seizure, Adult, [id number]. - Medication Reconciliation, Local Pharmacy Hours form. - Follow up: Ly Diaz; When: Call to arrange an appointment; Reason: Continuance of care. - Problem is new. - Symptoms are unchanged. Historical: - Allergies: sulfamyloncream; quell lotion; - Home Meds: 1. Paxil 40 mg Oral tab 1 tab once daily 2. Prilosec 40 mg Oral cpDR 1 cap nightly 3. Mellaril 100 mg Oral tab 1 tab 4 times per day 4. Dulcolax (bisacodyl) 5 mg Oral TbEC 1 tab Q3 days PRN 5. Seroquel 100 mg Oral tab 1 tab daily 6. Ativan 1 mg Oral tab 1 tab four times a day 7. ferrous sulfate 325 mg (65 mg iron) Oral tab 325 mg daily 8. Phenergan 50 mg Oral tab 1 tab every 4 hours as needed 9. Seroquel 300 mg Oral tab 1 tab nightly 10. artane 10 mg twice a day 11. Miralax 17 gram Oral pwpk 1 packet once daily 12. Zyprexa 5 mg Oral tab 1 tab twice a day - PMHx: Anxiety; Depression; mental retardation; profound intellectual disabilities; Seizure Disorder; microencephaly; - PSHx: none; - Social history: Smoking status: unknown if patient ever smoked tobacco. nonverbal . - Family history: Not pertinent. - : The pt / caregiver states he / she is not on anticoagulants. Home medication list is obtained from the facility AUG. - Exposure Risk Screening:: None identified. Vital Signs: 06/29 13:55 BP 121 / 77 (auto/); dsf 13:56 Pulse 84 MON; Pulse Ox 93% ; dsf 14:09 Pulse 76 MON; Resp 20; Pulse Ox 94% on R/A; Pain 0/10; dsf 14:15 Temp 96.4(R); dsf 16:14 BP 115 / 82; Pulse 68; Resp 18; Temp 96.9(TE); Pulse Ox 95% on R/A; kc3 MDM: 14:19 Accucheck ordered. fg 14:19 IV Saline Lock ordered. fg 14:19 Rhythm Strip to chart ordered. fg 14:20 Acetaminophen Level Ordered. EDMS 14:20 CBC with Diff Ordered. EDMS 14:20 Drug Eval Toxicology ED Only Ordered. EDMS 14:20 Liver Profile Ordered. EDMS 14:20 MED Profile Ordered. EDMS 14:20 Salicylate Level Ordered. EDMS 14:20 Thyroid Stimulating Hormone Ordered. EDMS 14:20 Urinalysis Ordered. EDMS 14:20 Urine Culture Ordered. EDMS 14:49 Fingerstick Blood Sugar Ordered. EDMS 15:20 LORazepam 0.5 mg IVP once ordered. fg 15:40 Chest, 1 View Ordered. EDMS 15:53 [facility] [place] Payment Agreement was scanned into [employer] and attached to record. [facility] 15:53 Financial registration complete. [facility] 06/30 11:22 T-Sheet-- Draft Copy was scanned into [employer] and attached to record. gb Point of Care Testing: Blood Glucose: 06/29 14:29 Blood Glucose: 93 mg/dL; dsf Ranges: Administered Medications: 15:26 Drug: LORazepam 0.5 mg [lorazepam 2 mg/mL injection solution (0.25 mL)] Route: IVP; dsf Site: left antecubital; Signatures: Dispatcher [employer] EDMS Vikki Marie, Reg Reg Fallon Sheldon RN RN f Sherie Cormier RN RN ms18 Rebeka Wills MD MD fg Beck, Gabriela gjb The chart was reviewed and I authenticate all verbal orders and agree with the evaluation and treatment provided.Attachments: 15:53 [facility] Payment Agreement [facility] 06/30 11:22 T-Sheet-- Draft Copy Chart Complete MTDD
--- NOTE | 2016-07-01 17:20 | EDDOCDS ---
Physician Documentation [facility] Name: Tyler Mulligan Age: 50 yrs Sex: Male : 1965 Arrival Date: 06/29/2016 Time: 13:39 Bed 9 Private MD: Cristo Rick A. Disposition: 06/29/16 16:01 Discharged to Home/Self Care. Impression: Epilepsy and recurrent seizures. - Condition is Stable. - Discharge Instructions: Seizure, Adult, [id number]. - Medication Reconciliation, Local Pharmacy Hours form. - Follow up: Ly Diaz; When: Call to arrange an appointment; Reason: Continuance of care. - Problem is new. - Symptoms are unchanged. Historical: - Allergies: sulfamyloncream; quell lotion; - Home Meds: 1. Paxil 40 mg Oral tab 1 tab once daily 2. Prilosec 40 mg Oral cpDR 1 cap nightly 3. Mellaril 100 mg Oral tab 1 tab 4 times per day 4. Dulcolax (bisacodyl) 5 mg Oral TbEC 1 tab Q3 days PRN 5. Seroquel 100 mg Oral tab 1 tab daily 6. Ativan 1 mg Oral tab 1 tab four times a day 7. ferrous sulfate 325 mg (65 mg iron) Oral tab 325 mg daily 8. Phenergan 50 mg Oral tab 1 tab every 4 hours as needed 9. Seroquel 300 mg Oral tab 1 tab nightly 10. artane 10 mg twice a day 11. Miralax 17 gram Oral pwpk 1 packet once daily 12. Zyprexa 5 mg Oral tab 1 tab twice a day - PMHx: Anxiety; Depression; mental retardation; profound intellectual disabilities; Seizure Disorder; microencephaly; - PSHx: none; - Social history: Smoking status: unknown if patient ever smoked tobacco. nonverbal . - Family history: Not pertinent. - : The pt / caregiver states he / she is not on anticoagulants. Home medication list is obtained from the facility AUG. - Exposure Risk Screening:: None identified. Vital Signs: 06/29 13:55 BP 121 / 77 (auto/); dsf 13:56 Pulse 84 MON; Pulse Ox 93% ; dsf 14:09 Pulse 76 MON; Resp 20; Pulse Ox 94% on R/A; Pain 0/10; dsf 14:15 Temp 96.4(R); dsf 16:14 BP 115 / 82; Pulse 68; Resp 18; Temp 96.9(TE); Pulse Ox 95% on R/A; kc3 MDM: 14:19 Accucheck ordered. fg 14:19 IV Saline Lock ordered. fg 14:19 Rhythm Strip to chart ordered. fg 14:20 Acetaminophen Level Ordered. EDMS 14:20 CBC with Diff Ordered. EDMS 14:20 Drug Eval Toxicology ED Only Ordered. EDMS 14:20 Liver Profile Ordered. EDMS 14:20 MED Profile Ordered. EDMS 14:20 Salicylate Level Ordered. EDMS 14:20 Thyroid Stimulating Hormone Ordered. EDMS 14:20 Urinalysis Ordered. EDMS 14:20 Urine Culture Ordered. EDMS 14:49 Fingerstick Blood Sugar Ordered. EDMS 15:20 LORazepam 0.5 mg IVP once ordered. fg 15:40 Chest, 1 View Ordered. EDMS 15:53 [place] [place] Agreement was scanned into [employer] and attached to record. [facility] 15:53 Financial registration complete. [facility] 06/30 11:22 T-Sheet-- Draft Copy was scanned into [employer] and attached to record. gb Point of Care Testing: Blood Glucose: 06/29 14:29 Blood Glucose: 93 mg/dL; dsf Ranges: Administered Medications: 15:26 Drug: LORazepam 0.5 mg [lorazepam 2 mg/mL injection solution (0.25 mL)] Route: IVP; dsf Site: left antecubital; Signatures: Dispatcher [employer] EDMS Vikki Marie, Reg Reg Fallon Sheldon RN RN f Sherie Cormier RN RN ms18 Rebeka Wills MD MD fg Beck, Gabriela gjb The chart was reviewed and I authenticate all verbal orders and agree with the evaluation and treatment provided.Attachments: 15:53 [facility] Payment Agreement [facility] 06/30 11:22 T-Sheet-- Draft Copy Chart Complete MTDD
== END 2016-06-29 16:19 | disposition home or self-care (01) ==
LOC: M ED 13:39
DX: G40.909 Epilepsy, unspecified, not intractable, without status epilepticus (principal); F41.9 Anxiety disorder, unspecified; F79 Unspecified intellectual disabilities; Z79.899 Other long term (current) drug therapy; Z88.2 Allergy status to sulfonamides; Z88.8 Allergy status to other drugs, medicaments and biological substances
CPT/HCPCS: 71010; 80048; 80076; 80306; 81001; 84443; 85025; 87086; 96374; 99285; G0480; J2060

== ENCOUNTER → 2016-09-02 | Outpatient (REF) | payer MEDICARE, MEDICAID ==
[2016-09-02 14:01] LABS: ALBUMIN/GLOBULIN RATIO 1.18 (1.00-1.93); ALKALINE PHOSPHATASE 95 U/L (45-117); ALT/SGPT 27 U/L (12-78); ANION GAP 7 MEQ/L (8-16); AST/SGOT 15 U/L (15-37); BILIRUBIN,TOTAL 0.3 MG/DL (0.2-1.0); BLOOD UREA NITROGEN 10 MG/DL (7-18); CARBON DIOXIDE LEVEL 30 MEQ/L (21-32); CHLORIDE LEVEL 104 MEQ/L (98-107); CREATININE FOR GFR 0.84 MG/DL (0.70-1.30); GLOMERULAR FILTRATION RATE > 60.0 (>56); GLUCOSE, FASTING 175 MG/DL (70-105); POTASSIUM SERUM 4.8 MEQ/L (3.5-5.1); SODIUM LEVEL 141 MEQ/L (136-145); TOTAL PROTEIN 7.4 GM/DL (6.4-8.2)
[2016-09-02 14:20] LABS: BASO % 0.5 % (0.0-1.0); EOS # 0.2 K/mm3 (0.0-0.50); EOS % 6.7 % (0.0-3.0); LARGE UNSTAINED CELL # 0.1 K/mm3 (0.0-0.4); LARGE UNSTAINED CELL % 2.1 % (0.0-4.0); LYMPH % 38.2 % (24.0-44.0); MEAN CORPUSCULAR HEMOGLOBIN 31.3 pg (27.0-33.0); MEAN CORPUSCULAR HGB CONC 32.6 g/dl (32.0-36.5); MEAN CORPUSCULAR VOLUME 95.9 fl (80.0-96.0); MONO # 0.1 K/mm3 (0.0-0.8); MONO % 5.3 % (0.0-5.0); NEUTROPHILS # 1.2 K/mm3 (1.8-7.7); NEUTROPHILS % 47.3 % (36.0-66.0); PLATELET COUNT, AUTOMATED 129 k/mm3 (150-450); RED CELL DISTRIBUTION WIDTH 13.5 % (11.5-14.5); WHITE BLOOD COUNT 2.6 K/mm3 (4.0-10.0)
[2016-09-05 14:11] LABS: TOPIRAMATE LEVEL None Detected ug/mL (2.0-25.0)
== END ==
LOC: M LABNEURO 13:16
PROVIDERS: ATTEND Psychiatry & Neurology Neurology
DX: G40.309 Generalized idiopathic epilepsy and epileptic syndromes, not intractable, without status epilepticus (principal)

== ENCOUNTER 2016-09-20 15:00 | Emergency (ER) | payer MEDICARE, MEDICAID ==
[~2016-09-20] VITALS: Ht 157.5 cm; Wt 74.8 kg
[2016-09-20 15:01] VITALS: BP 126/74
== END 2016-09-20 16:06 | disposition home or self-care (01) ==
LOC: M ED 15:58
DX: S01.81XA Laceration without foreign body of other part of head, initial encounter (principal); W19.XXXA Unspecified fall, initial encounter; Y92.099 Unspecified place in other non-institutional residence as the place of occurrence of the external cause; Y93.89 Activity, other specified; Y99.9 Unspecified external cause status

== ENCOUNTER 2016-09-29 10:36 | Emergency (ER) | payer MEDICARE, MEDICAID ==
[~2016-09-29] VITALS: Ht 157.5 cm; Wt 74.8 kg
[2016-09-29] MEDS ORDERED: LEVETIRACETA (10:48)
[2016-09-29] MEDS ORDERED: OMEP20CA3 (10:48)
[2016-09-29] MEDS ORDERED: QUET1TAB8 (10:48)
[2016-09-29] MEDS ORDERED: LORA1TAB12 (10:48)
[2016-09-29] MEDS ORDERED: THIO100T2 (10:48)
[2016-09-29] MEDS ORDERED: OLAN10TA2 (10:48)
[2016-09-29] MEDS ORDERED: QUET1TAB10 (10:48)
[2016-09-29] MEDS ORDERED: PROM50TA2 (10:48)
[2016-09-29] MEDS ORDERED: TOPI1TAB31 (10:48)
[2016-09-29] MEDS ORDERED: PARO40TA2 (10:48)
[2016-09-29] MEDS ORDERED: POLY1POW4 (10:48)
[2016-09-29] MEDS ORDERED: TRIH5TAB (10:48)
[2016-09-29] MEDS ORDERED: LORazepam 2 MG/ML VIAL (J2060) IM STA (14:27)
[2016-09-29 14:52] LABS: BASO % 0.2 % (0.0-1.0); EOS # 0.1 K/mm3 (0.0-0.50); EOS % 1.8 % (0.0-3.0); LARGE UNSTAINED CELL # 0.1 K/mm3 (0.0-0.4); LARGE UNSTAINED CELL % 2.4 % (0.0-4.0); LYMPH # 1.3 K/mm3 (1.5-4.5); LYMPH % 31.4 % (24.0-44.0); MEAN CORPUSCULAR HGB CONC 33.8 g/dl (32.0-36.5); MEAN CORPUSCULAR VOLUME 94.7 fl (80.0-96.0); MONO # 0.2 K/mm3 (0.0-0.8); MONO % 5.2 % (0.0-5.0); NEUTROPHILS # 2.4 K/mm3 (1.8-7.7); PLATELET COUNT, AUTOMATED 159 k/mm3 (150-450); RED CELL DISTRIBUTION WIDTH 14.2 % (11.5-14.5)
[2016-09-29 15:26] LABS: ALBUMIN 3.9 GM/DL (3.2-5.2); ALKALINE PHOSPHATASE 107 U/L (45-117); ALT/SGPT 49 U/L (12-78); ANION GAP 8 MEQ/L (8-16); AST/SGOT 27 U/L (15-37); BILIRUBIN,DIRECT < 0.1 MG/DL (0.0-0.2); BILIRUBIN,TOTAL 0.2 MG/DL (0.2-1.0); BLOOD UREA NITROGEN 15 MG/DL (7-18); CALCIUM LEVEL 8.7 MG/DL (8.5-10.1); CARBON DIOXIDE LEVEL 27 MEQ/L (21-32); CHLORIDE LEVEL 104 MEQ/L (98-107); CREATININE FOR GFR 0.85 MG/DL (0.70-1.30); GLOMERULAR FILTRATION RATE > 60.0 (>56); GLUCOSE, FASTING 90 MG/DL (70-105); POTASSIUM SERUM 4.9 MEQ/L (3.5-5.1); SODIUM LEVEL 139 MEQ/L (136-145); TOTAL PROTEIN 7.8 GM/DL (6.4-8.2)
[2016-09-29] MEDS ORDERED: COLA100C3 PO (15:54)
[2016-09-29 16:10] VITALS: BP 123/71
== END 2016-09-29 16:15 | disposition home or self-care (01) ==
LOC: M ED 13:28
DX: K59.00 Constipation, unspecified (principal); Z79.899 Other long term (current) drug therapy; Z88.2 Allergy status to sulfonamides; Z88.8 Allergy status to other drugs, medicaments and biological substances
CPT/HCPCS: 36415; 80048; 80076; 83690; 85025; 96372; 99282; J2060

== ENCOUNTER 2016-10-31 10:44 | Emergency (ER) | payer MEDICARE, MEDICAID ==
[~2016-10-31] VITALS: Ht 157.5 cm; Wt 63.5 kg
[~2016-10-31 10:44] MED LIST: COLA100C3 PO; LEVETIRACETA; LORA1TAB12; OLAN10TA2; OMEP20CA3; PARO40TA2; POLY1POW4; PROM50TA2; QUET1TAB10; QUET1TAB8; THIO100T2; TOPI1TAB31; TRIH5TAB
[2016-10-31] MEDS ORDERED: FERR325T3 PO (11:12)
[2016-10-31] MEDS ORDERED: CARB200C5 (11:12)
[2016-10-31 12:34] LABS: BASO % 0.2 % (0.0-1.0); EOS # 0.1 K/mm3 (0.0-0.50); EOS % 0.9 % (0.0-3.0); LARGE UNSTAINED CELL # 0.1 K/mm3 (0.0-0.4); LARGE UNSTAINED CELL % 0.8 % (0.0-4.0); LYMPH # 1.1 K/mm3 (1.5-4.5); LYMPH % 8.7 % (24.0-44.0); MEAN CORPUSCULAR HEMOGLOBIN 31.4 pg (27.0-33.0); MEAN CORPUSCULAR HGB CONC 33.9 g/dl (32.0-36.5); MEAN CORPUSCULAR VOLUME 92.5 fl (80.0-96.0); MONO # 0.4 K/mm3 (0.0-0.8); MONO % 3.2 % (0.0-5.0); NEUTROPHILS # 10.3 K/mm3 (1.8-7.7); NEUTROPHILS % 86.3 % (36.0-66.0); PLATELET COUNT, AUTOMATED 194 k/mm3 (150-450); RED CELL DISTRIBUTION WIDTH 13.5 % (11.5-14.5); WHITE BLOOD COUNT 11.9 K/mm3 (4.0-10.0)
[2016-10-31 12:49] LABS: ANION GAP 4 MEQ/L (8-16); BLOOD UREA NITROGEN 9 MG/DL (7-18); CALCIUM LEVEL 8.2 MG/DL (8.5-10.1); CARBAMAZEPINE (TEGRETOL) LEVEL 14.6 UG/ML (4.0-10.0); CARBON DIOXIDE LEVEL 30 MEQ/L (21-32); CHLORIDE LEVEL 96 MEQ/L (98-107); CREATININE FOR GFR 0.75 MG/DL (0.70-1.30); GLOMERULAR FILTRATION RATE > 60.0 (>56); GLUCOSE, FASTING 114 MG/DL (70-105); POTASSIUM SERUM 4.4 MEQ/L (3.5-5.1); SODIUM LEVEL 130 MEQ/L (136-145)
--- NOTE | 2016-10-31 13:01 | REP ---
Clinical: Weakness. Technique: PA and lateral. Comparison: 06/29/2016. Findings: Mediastinum and cardiac silhouette are stable. Lung callaway demonstrate stable chronic interstitial changes without obvious acute consolidation, effusion, or pneumothorax. Skeletal structures unchanged, and evidence for old healed left clavicle fracture noted. Impression: Chronic stable changes. No obvious acute cardiopulmonary process. Signed by Jah Mccarthy MD 10/31/2016 12:52 P
[2016-10-31] MEDS ORDERED: CARB10TAXR PO (13:59)
[2016-10-31 14:24] VITALS: BP 111/55
== END 2016-10-31 14:27 | disposition home or self-care (01) ==
LOC: M ED 11:56
DX: R53.1 Weakness (principal); R53.83 Other fatigue; T42.1X5A Adverse effect of iminostilbenes, initial encounter; G80.9 Cerebral palsy, unspecified; F79 Unspecified intellectual disabilities; F41.9 Anxiety disorder, unspecified; Z79.899 Other long term (current) drug therapy; Z88.1 Allergy status to other antibiotic agents; Z88.2 Allergy status to sulfonamides; Z88.8 Allergy status to other drugs, medicaments and biological substances

== ENCOUNTER → 2016-11-14 | Outpatient (CLI) | payer MEDICARE, MEDICAID ==
[~2016-11-14] MED LIST changes: +CARB10TAXR PO; +CARB200C5; +FERR325T3 PO
[2016-11-14 09:48] LABS: MEAN CORPUSCULAR HEMOGLOBIN 31.5 pg (27.0-33.0); MEAN CORPUSCULAR HGB CONC 33.6 g/dl (32.0-36.5); MEAN CORPUSCULAR VOLUME 93.7 fl (80.0-96.0); RED CELL DISTRIBUTION WIDTH 13.6 % (11.5-14.5); WHITE BLOOD COUNT 6.4 K/mm3 (4.0-10.0)
[2016-11-14 10:03] LABS: ALBUMIN 3.4 GM/DL (3.2-5.2); ALBUMIN/GLOBULIN RATIO 0.85 (1.00-1.93); ALKALINE PHOSPHATASE 104 U/L (45-117); ALT/SGPT 21 U/L (12-78); ANION GAP 7 MEQ/L (8-16); AST/SGOT 11 U/L (15-37); BILIRUBIN,TOTAL 0.2 MG/DL (0.2-1.0); BLOOD UREA NITROGEN 12 MG/DL (7-18); CALCIUM LEVEL 8.7 MG/DL (8.5-10.1); CARBAMAZEPINE (TEGRETOL) LEVEL 4.2 UG/ML (4.0-10.0); CARBON DIOXIDE LEVEL 30 MEQ/L (21-32); CHLORIDE LEVEL 99 MEQ/L (98-107); CREATININE FOR GFR 0.76 MG/DL (0.70-1.30); FERRITIN 851 NG/ML (26-388); GLOMERULAR FILTRATION RATE > 60.0 (>56); GLUCOSE, FASTING 104 MG/DL (70-105); PERCENT SATURATION 23.4 % (19.7-37.4); POTASSIUM SERUM 4.8 MEQ/L (3.5-5.1); SODIUM LEVEL 136 MEQ/L (136-145); TOTAL IRON BINDING CAPACITY 256 UG/DL (250-450); TOTAL PROTEIN 7.4 GM/DL (6.4-8.2)
[2016-11-14 10:38] LABS: VITAMIN B12 LEVEL 512 PG/ML
[2016-11-14 10:39] LABS: FOLATE 10.8 NG/ML
[2016-11-14 10:54] LABS: EOSINOPHILS 3 % (0-5)
== END ==
LOC: M WUC 08:12
PROVIDERS: ATTEND Family Medicine
DX: D64.9 Anemia, unspecified (principal); Z51.81 Encounter for therapeutic drug level monitoring; Z79.899 Other long term (current) drug therapy

== ENCOUNTER 2017-05-11 09:39 | Emergency (ER) | payer MEDICARE, MEDICAID ==
[~2017-05-11] VITALS: Ht 157.5 cm; Wt 62400.0 kg
[~2017-05-11 09:39] MED LIST changes: -CARB10TAXR PO; -COLA100C3 PO; +COLA100C5 PO; -PROM50TA2; +PROM50TA4; +TEGR100T3 PO; +TOPI100T9; -TOPI1TAB31
[2017-05-11 09:51] VITALS: BP 135/69
== END 2017-05-11 10:18 | disposition home or self-care (01) ==
LOC: M ED 09:39
DX: S01.01XA Laceration without foreign body of scalp, initial encounter (principal); W22.8XXA Striking against or struck by other objects, initial encounter; Y92.018 Other place in single-family (private) house as the place of occurrence of the external cause; Y93.89 Activity, other specified; Y99.8 Other external cause status; R56.9 Unspecified convulsions; F79 Unspecified intellectual disabilities; F41.9 Anxiety disorder, unspecified; Z79.899 Other long term (current) drug therapy; Z88.1 Allergy status to other antibiotic agents; Z88.2 Allergy status to sulfonamides; Z88.8 Allergy status to other drugs, medicaments and biological substances

== ENCOUNTER → 2017-08-15 | Outpatient (CLI) | payer MEDICARE, MEDICAID ==
[2017-08-15 08:22] LABS: BASO % 0.1 % (0.0-1.0); EOS # 0.1 10^3/uL (0.0-0.50); EOS % 0.5 % (0.0-3.0); HEMATOCRIT 39.8 % (42.0-52.0); HEMOGLOBIN 13.5 g/dl (14.0-18.0); IMMATURE GRANULOCYTE % 0.3 % (0-3.0); LYMPH # 0.8 10^3/uL (1.5-4.5); LYMPH % 6.1 % (24.0-44.0); MEAN CORPUSCULAR HEMOGLOBIN 30.6 pg (27.0-33.0); MEAN CORPUSCULAR HGB CONC 33.9 g/dl (32.0-36.5); MEAN CORPUSCULAR VOLUME 90.2 fl (80.0-96.0); MONO # 0.6 10^3/uL (0.0-0.8); MONO % 4.2 % (0.0-5.0); NEUTROPHILS # 11.9 10^3/uL (1.8-7.7); NEUTROPHILS % 88.8 % (36.0-66.0); PLATELET COUNT, AUTOMATED 145 10^3/uL (150-450); RED BLOOD COUNT 4.41 10^6/uL (4.30-6.10); RED CELL DISTRIBUTION WIDTH 12.5 % (11.5-14.5); WHITE BLOOD COUNT 13.4 10^3/uL (4.0-10.0)
[2017-08-15 08:55] LABS: ALBUMIN 4.2 GM/DL (3.2-5.2); ALBUMIN/GLOBULIN RATIO 1.27 (1.00-1.93); ALKALINE PHOSPHATASE 90 U/L (45-117); ALT/SGPT 25 U/L (12-78); ANION GAP 5 MEQ/L (8-16); AST/SGOT 17 U/L (7-37); BILIRUBIN,TOTAL 0.4 MG/DL (0.2-1.0); BLOOD UREA NITROGEN 13 MG/DL (7-18); CALCIUM LEVEL 8.7 MG/DL (8.5-10.1); CARBON DIOXIDE LEVEL 31 MEQ/L (21-32); CHLORIDE LEVEL 99 MEQ/L (98-107); CHOLESTEROL LEVEL 137 MG/DL (<200); CHOLESTEROL RISK RATIO 3.702 (<5); CREATININE FOR GFR 0.85 MG/DL (0.70-1.30); GLOMERULAR FILTRATION RATE > 60.0 (>56); GLUCOSE, FASTING 108 MG/DL (70-100); HDL CHOLESTEROL 37 MG/DL (>40); LDL CHOLESTEROL 84.8 MG/DL (<100); NON-HDL-C 100 MG/DL; POTASSIUM SERUM 4.8 MEQ/L (3.5-5.1); SODIUM LEVEL 135 MEQ/L (136-145); TOTAL PROTEIN 7.5 GM/DL (6.4-8.2); TRIGLYCERIDES LEVEL 76 MG/DL (<150)
== END ==
LOC: M LAB 07:04
DX: E78.1 Pure hyperglyceridemia (principal); Z79.899 Other long term (current) drug therapy
CPT/HCPCS: 80156

== ENCOUNTER → 2017-10-17 | Outpatient (REF) | payer MEDICARE, MEDICAID ==
[2017-10-17 21:50] LABS: APPEARANCE, URINE CLOUDY (CLEAR); BACTERIA, URINE AUTO 3+ (NEGATIVE); BILIRUBIN, URINE AUTO NEGATIVE (NEGATIVE); BLOOD, URINE BLOOD NEGATIVE (NEGATIVE); COLOR, URINE YELLOW (YELLOW); GLUCOSE, URINE (UA) AUTO NEGATIVE (NEGATIVE); KETONE, URINE AUTO NEGATIVE (NEGATIVE); LEUKOCYTE ESTERASE, URINE AUTO 1+ (NEGATIVE); NITRITE, URINE AUTO NEGATIVE (NEGATIVE); PROTEIN, URINE AUTO NEGATIVE (NEGATIVE); RBC, URINE AUTO 0 /HPF (0-3); SPECIFIC GRAVITY URINE AUTO 1.014 (1.002-1.035); SQUAMOUS EPITHELIAL CELL UR AU 0 /HPF (0-6); WBC, URINE AUTO 34 /HPF (0-3)
== END ==
LOC: M LAB REF 09:34
DX: N39.0 Urinary tract infection, site not specified (principal)
CPT/HCPCS: 81001

== ENCOUNTER → 2017-10-28 | Outpatient (REF) | payer MEDICARE, MEDICAID ==
[2017-10-28 21:42] LABS: APPEARANCE, URINE CLOUDY (CLEAR); BACTERIA, URINE AUTO 3+ (NEGATIVE); BILIRUBIN, URINE AUTO NEGATIVE (NEGATIVE); BLOOD, URINE BLOOD NEGATIVE (NEGATIVE); COLOR, URINE YELLOW (YELLOW); GLUCOSE, URINE (UA) AUTO NEGATIVE (NEGATIVE); KETONE, URINE AUTO NEGATIVE (NEGATIVE); LEUKOCYTE ESTERASE, URINE AUTO 2+ (NEGATIVE); MUCUS, URINE SMALL (NEGATIVE); NITRITE, URINE AUTO NEGATIVE (NEGATIVE); PROTEIN, URINE AUTO NEGATIVE (NEGATIVE); RBC, URINE AUTO 1 /HPF (0-3); SPECIFIC GRAVITY URINE AUTO 1.011 (1.002-1.035); SQUAMOUS EPITHELIAL CELL UR AU 0 /HPF (0-6); UROBILINOGEN, URINE AUTO 0.2 mg/dL (0.0-2.0); WBC, URINE AUTO 115 /HPF (0-3)
== END ==
LOC: M LAB REF 12:07
DX: N39.0 Urinary tract infection, site not specified (principal)
CPT/HCPCS: 81001

== ENCOUNTER → 2017-11-05 | Outpatient (CLI) | payer MEDICARE, MEDICAID ==
[2017-11-05 10:24] LABS: BASO % 0.4 % (0.0-1.0); EOS # 0.3 10^3/uL (0.0-0.50); HEMATOCRIT 38.4 % (42.0-52.0); HEMOGLOBIN 12.6 g/dl (13.5-17.5); IMMATURE GRANULOCYTE % 0.2 % (0-3.0); LYMPH # 1.2 10^3/uL (1.5-4.5); LYMPH % 22.3 % (24.0-44.0); MEAN CORPUSCULAR HEMOGLOBIN 30.6 pg (27.0-33.0); MEAN CORPUSCULAR HGB CONC 32.8 g/dl (32.0-36.5); MEAN CORPUSCULAR VOLUME 93.2 fl (80.0-96.0); MONO # 0.6 10^3/uL (0.0-0.8); MONO % 10.1 % (0.0-5.0); NEUTROPHILS # 3.5 10^3/uL (1.8-7.7); PLATELET COUNT, AUTOMATED 205 10^3/uL (150-450); RED BLOOD COUNT 4.12 10^6/uL (4.30-6.10); RED CELL DISTRIBUTION WIDTH 13.1 % (11.5-14.5); WHITE BLOOD COUNT 5.6 10^3/uL (4.0-10.0)
[2017-11-05 10:37] LABS: APPEARANCE, URINE CLEAR (CLEAR); BACTERIA, URINE AUTO NEGATIVE (NEGATIVE); BILIRUBIN, URINE AUTO NEGATIVE (NEGATIVE); BLOOD, URINE BLOOD NEGATIVE (NEGATIVE); COLOR, URINE YELLOW (YELLOW); GLUCOSE, URINE (UA) AUTO NEGATIVE (NEGATIVE); KETONE, URINE AUTO NEGATIVE (NEGATIVE); LEUKOCYTE ESTERASE, URINE AUTO NEGATIVE (NEGATIVE); NITRITE, URINE AUTO NEGATIVE (NEGATIVE); PROTEIN, URINE AUTO NEGATIVE (NEGATIVE); RBC, URINE AUTO 0 /HPF (0-3); SPECIFIC GRAVITY URINE AUTO 1.009 (1.002-1.035); SQUAMOUS EPITHELIAL CELL UR AU 0 /HPF (0-6); UROBILINOGEN, URINE AUTO 0.2 mg/dL (0.0-2.0); WBC, URINE AUTO 1 /HPF (0-3)
[2017-11-05 10:47] LABS: ALBUMIN/GLOBULIN RATIO 1.18 (1.00-1.93); ALKALINE PHOSPHATASE 85 U/L (45-117); ALT/SGPT 20 U/L (12-78); ANION GAP 3 MEQ/L (8-16); AST/SGOT 11 U/L (7-37); BILIRUBIN,TOTAL 0.2 MG/DL (0.2-1.0); BLOOD UREA NITROGEN 11 MG/DL (7-18); CALCIUM LEVEL 8.8 MG/DL (8.5-10.1); CARBAMAZEPINE (TEGRETOL) LEVEL 5.2 UG/ML (4.0-10.0); CARBON DIOXIDE LEVEL 32 MEQ/L (21-32); CHLORIDE LEVEL 104 MEQ/L (98-107); CREATININE FOR GFR 0.77 MG/DL (0.70-1.30); GLOMERULAR FILTRATION RATE > 60.0 (>56); GLUCOSE, FASTING 106 MG/DL (70-100); SODIUM LEVEL 139 MEQ/L (136-145); TOTAL PROTEIN 7.4 GM/DL (6.4-8.2)
[2017-11-05 10:49] LABS: POTASSIUM SERUM 5.6 MEQ/L (3.5-5.1)
== END ==
LOC: M LAB 09:48
DX: R53.81 Other malaise (principal)
CPT/HCPCS: 80156

== ENCOUNTER → 2018-02-16 | Outpatient (CLI) | payer MEDICARE, MEDICAID ==
[2018-02-16 11:22] LABS: ANION GAP 7 MEQ/L (8-16); BLOOD UREA NITROGEN 10 MG/DL (7-18); CALCIUM LEVEL 8.4 MG/DL (8.5-10.1); CARBON DIOXIDE LEVEL 27 MEQ/L (21-32); CHLORIDE LEVEL 97 MEQ/L (98-107); CREATININE FOR GFR 0.65 MG/DL (0.70-1.30); GLOMERULAR FILTRATION RATE > 60.0 (>56); GLUCOSE, FASTING 93 MG/DL (70-100); POTASSIUM SERUM 4.4 MEQ/L (3.5-5.1); SODIUM LEVEL 131 MEQ/L (136-145)
== END ==
LOC: M LAB 09:25
DX: E87.5 Hyperkalemia (principal)

== ENCOUNTER → 2018-02-16 | Outpatient (CLI) | payer MEDICARE, MEDICAID ==
[2018-02-16 10:57] LABS: WHITE BLOOD COUNT 10.1 10^3/uL (4.0-10.0)
[2018-02-16 11:23] LABS: CARBAMAZEPINE (TEGRETOL) LEVEL 6.6 UG/ML (4.0-10.0)
== END ==
LOC: M LAB 09:15
DX: Z51.81 Encounter for therapeutic drug level monitoring (principal); Z79.899 Other long term (current) drug therapy; E87.5 Hyperkalemia
CPT/HCPCS: 80156

== ENCOUNTER → 2018-02-27 | Outpatient (CLI) | payer MEDICARE, MEDICAID ==
[2018-02-27 09:23] LABS: CARBAMAZEPINE (TEGRETOL) LEVEL 8.1 UG/ML (4.0-10.0)
== END ==
LOC: M LAB 08:32
DX: Z79.899 Other long term (current) drug therapy (principal)
CPT/HCPCS: 80156

== ENCOUNTER → 2018-03-03 | Outpatient (REF) | payer MEDICARE, MEDICAID ==
[2018-03-03 22:26] LABS: APPEARANCE, URINE CLOUDY (CLEAR); BACTERIA, URINE AUTO 3+ (NEGATIVE); BILIRUBIN, URINE AUTO NEGATIVE (NEGATIVE); BLOOD, URINE BLOOD NEGATIVE (NEGATIVE); COLOR, URINE AMBER (YELLOW); GLUCOSE, URINE (UA) AUTO NEGATIVE (NEGATIVE); KETONE, URINE AUTO NEGATIVE (NEGATIVE); LEUKOCYTE ESTERASE, URINE AUTO 2+ (NEGATIVE); MUCUS, URINE SMALL (NEGATIVE); NITRITE, URINE AUTO NEGATIVE (NEGATIVE); PROTEIN, URINE AUTO NEGATIVE (NEGATIVE); RBC, URINE AUTO 3 /HPF (0-3); SPECIFIC GRAVITY URINE AUTO 1.015 (1.002-1.035); SQUAMOUS EPITHELIAL CELL UR AU 0 /HPF (0-6); WBC, URINE AUTO 101 /HPF (0-3)
== END ==
LOC: M LAB REF 12:29
DX: N39.0 Urinary tract infection, site not specified (principal)
CPT/HCPCS: 81001

== ENCOUNTER 2018-03-09 13:03 | Emergency (ER) | payer MEDICARE, MEDICAID | END 2018-03-09 14:36 | disposition home or self-care (01) | LOC: M ED 13:03 | DX: S01.81XA Laceration without foreign body of other part of head, initial encounter (principal); W18.00XA Striking against unspecified object with subsequent fall, initial encounter | CPT/HCPCS: 99283 ==

== ENCOUNTER → 2018-03-23 | Outpatient (REF) | payer MEDICARE, MEDICAID ==
[2018-03-23 09:39] LABS: AMORPHOUS SEDIMENT SMALL (NEGATIVE); APPEARANCE, URINE CLEAR (CLEAR); BACTERIA, URINE AUTO NEGATIVE (NEGATIVE); BILIRUBIN, URINE AUTO NEGATIVE (NEGATIVE); BLOOD, URINE BLOOD NEGATIVE (NEGATIVE); COLOR, URINE YELLOW (YELLOW); GLUCOSE, URINE (UA) AUTO NEGATIVE (NEGATIVE); KETONE, URINE AUTO NEGATIVE (NEGATIVE); LEUKOCYTE ESTERASE, URINE AUTO NEGATIVE (NEGATIVE); MUCUS, URINE SMALL (NEGATIVE); NITRITE, URINE AUTO NEGATIVE (NEGATIVE); PROTEIN, URINE AUTO NEGATIVE (NEGATIVE); RBC, URINE AUTO 0 /HPF (0-3); SQUAMOUS EPITHELIAL CELL UR AU 0 /HPF (0-6); UROBILINOGEN, URINE AUTO 0.2 mg/dL (0.0-2.0); WBC, URINE AUTO 0 /HPF (0-3)
== END ==
LOC: M LAB REF 09:01
DX: N39.0 Urinary tract infection, site not specified (principal)
CPT/HCPCS: 81001

== ENCOUNTER → 2018-07-10 | Outpatient (REF) | payer MEDICARE, MEDICAID ==
[~2018-07-10] MED LIST changes: +CARB1CAP2; -CARB200C5; -POLY1POW4; +POLY33503
[2018-07-10 14:56] LABS: INFLUENZA A AMPLIFICATION NEGATIVE (NEGATIVE); INFLUENZA B AMPLIFICATION NEGATIVE (NEGATIVE)
== END ==
LOC: M LAB REF 14:13
PROVIDERS: ATTEND Physician Assistant Medical
DX: J11.1 Influenza due to unidentified influenza virus with other respiratory manifestations (principal)

== ENCOUNTER → 2018-10-01 | Outpatient (CLI) | payer MEDICARE, MEDICAID ==
[~2018-10-01] MED LIST changes: -CARB1CAP2; +CARB200C4
== END ==
LOC: M LAB 08:37
PROVIDERS: ATTEND Psychiatry & Neurology Psychiatry
DX: Z51.81 Encounter for therapeutic drug level monitoring (principal); Z79.899 Other long term (current) drug therapy

== ENCOUNTER 2018-10-07 11:16 | Inpatient (IN) | payer MEDICARE, MEDICAID ==
[~2018-10-07] VITALS: Ht 157.5 cm; Wt 99.3 kg
[2018-10-07] MEDS: FERROUS SULFATE 325MG TAB PO SCH (09:00)
[2018-10-07] MEDS: PARoxetine 20 MG TAB PO SCH (09:00)
[~2018-10-07 11:16] MED LIST changes: -LORA1TAB12; +LORA1TAB12 PO; -PARO40TA2; +PARO40TA2 PO; -TRIH5TAB; +TRIH5TAB PO
[2018-10-07] MEDS ORDERED: CARB200C4 PO (11:58)
[2018-10-07] MEDS ORDERED: RISP1SS PO (11:58)
[2018-10-07] MEDS ORDERED: NS 1,000 ML IV ONE (12:15)
[2018-10-07] MEDS ORDERED: RISP1TAB3 PO (12:25)
[2018-10-07] MEDS ORDERED: THIO25TA PO (12:25)
[2018-10-07] MEDS ORDERED: MIRA3350 PO (12:25)
[2018-10-07] MEDS ORDERED: TRIH0.4E PO (12:25)
[2018-10-07] MEDS ORDERED: BISA5TAB5 PO (12:25)
[2018-10-07 12:46] LABS: HEMATOCRIT 41.9 % (42.0-52.0); HEMOGLOBIN 13.8 g/dl (13.5-17.5); MEAN CORPUSCULAR HEMOGLOBIN 30.8 pg (27.0-33.0); MEAN CORPUSCULAR HGB CONC 32.9 g/dl (32.0-36.5); MEAN CORPUSCULAR VOLUME 93.5 fl (80.0-96.0); PLATELET COUNT, AUTOMATED 168 10^3/uL (150-450); RED BLOOD COUNT 4.48 10^6/uL (4.30-6.10); WHITE BLOOD COUNT 15.8 10^3/uL (4.0-10.0)
[2018-10-07 13:09] LABS: CPK CREATINE PHOSPHOKINASE 107 U/L (39-308); MB/CK RELATIVE INDEX 1.59 (< OR =4); TROPONIN I < 0.02 NG/ML (< 0.10)
[2018-10-07 13:20] LABS: BLOOD UREA NITROGEN 17 MG/DL (7-18); CALCIUM LEVEL 7.9 MG/DL (8.5-10.1); CARBAMAZEPINE (TEGRETOL) LEVEL 4.3 UG/ML (4.0-10.0); CARBON DIOXIDE LEVEL 22 MEQ/L (21-32); CHLORIDE LEVEL 104 MEQ/L (98-107); GLOMERULAR FILTRATION RATE > 60.0 (>56); GLUCOSE, FASTING 107 MG/DL (70-100); POTASSIUM SERUM 4.8 MEQ/L (3.5-5.1); SODIUM LEVEL 133 MEQ/L (136-145)
--- NOTE | 2018-10-07 13:49 | REP ---
CHEST, PORTABLE: AP portable view of the chest is performed. Comparison 10/31/2016. There is somewhat poor ventilation. Slightly prominent interstitium is unchanged with no new infiltrate. Heart is not significantly enlarged. Mediastinal silhouette is unchanged. There is an old healed left clavicle fracture. IMPRESSION: No change since prior study 10/31/2016. Stable chronic findings without acute infiltrate. Electronically Signed by Hilario Liao MD 10/07/2018 02:59 P
[2018-10-07] MEDS: NS 1,000 ML IV SCH ×3 (14:59→16:00)
[2018-10-07] MEDS ORDERED: OMEPRAZOLE 20 MG CAP PO SCH (15:30)
[2018-10-07] MEDS ORDERED: LORazepam 1 MG TAB PO SCH (15:30)
[2018-10-07] MEDS ORDERED: carBAMazepine XR 200 MG TAB PO ONE (15:30)
--- NOTE | 2018-10-07 16:03 | HPE ---
DATE OF ADMISSION: 10/07/2018 CHIEF COMPLAINT: Lethargic. HISTORY OF PRESENT ILLNESS: This is a 52-year-old [facility] ([facility]) resident who was in his usual state of health until this morning, when he was found to be lethargic. According to the [facility] staff, who is providing the history, as the patient is nonverbal, patient got up usually at 8:00 a.m., he sat on his chair and was able to eat his breakfast. At around 10:00 a.m., patient was called to take his medications. He was found to be off balance and slow, almost falling over as he walked over to get his medications. There has been no changes in his medications aside from Risperdal for the past three days. According to staff, patient has had no fever, chills, nausea, vomiting, abdominal pain, diarrhea or constipation. He has been in his usual state of health aside from increased listlessness and lethargy since the Risperdal has been started. Patient otherwise denies any dysuria, urgency or frequency. Patient usually signs and screams when he is distressed. When seen in the emergency room, he was found to be severely hypotensive, with systolic pressure of 82/51. According to staff over at [facility], he was found to have a blood pressure of 58/41. Patient received 1 liter bolus with subsequent improvement to 103/58. White count slightly elevated 15.8. Urine still pending. Chest x-ray had no change, stable chronic changes with poor ventilation, no new infiltrates and heart is not enlarged, with an old healed left clavicular fracture. Hospitalist was called to admit for hypotension. PAST MEDICAL HISTORY: 1. Depression. 2. Mental retardation. 3. 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 4. Anxiety. 5. Patient is a FULL CODE. PAST SURGICAL HISTORY: Unknown, as the patient is nonverbal and currently not on medical records. HOME MEDICATIONS: Please see below. Includes; - ferrous sulfate - Artane - MiraLAX - Colace - Ativan - hydroxyzine - carbamazepine - thioridazine - Dulcolax - Paxil - Prilosec - Recently started on Risperdal SOCIAL HISTORY: Patient lives at [facility]. Nonsmoker. Nondrinker. No recreational drug use. FAMILY HISTORY: Unknown, as the patient is nonverbal. REVIEW OF SYSTEMS: Could not be obtained as the patient is nonverbal. History is obtained from patient's [facility] sitter. PHYSICAL EXAMINATION: Temperature 96.6, pulse 104, blood pressure 82/51, respiratory rate 16, 99% on room air. GENERAL: Patient has a right-sided ptosis, which is chronic, according to [facility] staff. He is awake, alert, oriented to person only. He is nonverbal at baseline and screams and moans at the bedside. 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 He has purposeful movements. Follows commands, but does not speak. Poor dentition with dry mucous membranes. No jugular venous distention (JVD). Thyromegaly. LUNGS: Clear to auscultation. No wheezing, rales or rhonchi. HEART: S1, S2. Sinus tachycardia. ABDOMEN: Soft, nontender, nondistended. EXTREMITIES: Have no cyanosis, clubbing or any pitting edema. EKG: Sinus rhythm, ventricular rate of 94, right axis deviation, QT 280, QTc 331. White count 15.8, hemoglobin 13, hematocrit 41, platelet count 168. Sodium 133, potassium 4.8, chloride 104, bicarbonate 22, BUN 17, creatinine 1.3, glucose 107, calcium 7.9. Total CK 107, MB fraction 2. Troponin less than 0.02. Urinalysis still pending. Chest x-ray: No acute disease, stable chronic findings. No change since prior study of 10/31/2016. Heart is not enlarged. Old healed left clavicular fracture. Poor ventilation. Slightly prominent interstitium is unchanged. Mediastinal silhouette is unchanged. ASSESSMENT AND PLAN: Patient is a 52-year-old male recently started on Risperdal three days ago, presents with altered mental status with difficulty ambulating and hypotension. Patient will be admitted as inpatient for two midnights for the following issues: 1. Hypotension. Patient is found to be hypotensive, most likely secondary to Risperdal. At this time, he has responded to IV fluid hydration, is afebrile despite slight increase in white count. No empiric antibiotics will be given. Will check for procalcitonin level, erythrocyte sedimentation rate and C-reactive protein (CRP). Should the patient have a fever, patient will be empirically started on antibiotics. He is nonverbal and unable to provide any history. We have asked for a stat urinalysis, which has not been sent, as well as other function tests, sedimentation rate, procalcitonin, CRP and blood cultures, systemic inflammatory swabs. Tachycardia and hypotension. No signs of infection. No empiric antibiotics. Check lactic acid. 2. Anxiety/depression. Resume home medications. 3. History of seizure disorder due to microencephaly. Resume carbamazepine. Check carbamazepine level. 4. History of profound mental retardation. [facility] sitter will be with him at all times. 5. Iron deficiency. Continue ferrous sulfate. 6. Chronic constipation. Continue on bowel regimen. 7. Deep venous thrombosis (DVT) prophylaxis. Compression stockings. CODE STATUS: FULL CODE.
[2018-10-07 16:22] LABS: ALBUMIN 3.5 GM/DL (3.2-5.2); ALT/SGPT 14 U/L (12-78); BILIRUBIN,DIRECT < 0.1 MG/DL (0.0-0.2); BILIRUBIN,TOTAL 0.3 MG/DL (0.2-1.0); C REACTIVE PROTEIN QUANTITATIV 0.74 MG/DL (0.00-0.30); THYROID STIMULATING HORMONE 0.708 uIU/ML (0.358-3.740); TOTAL PROTEIN 6.4 GM/DL (6.4-8.2)
[2018-10-07 17:15] VITALS: BP 104/69
[2018-10-07 18:15] VITALS: BP 110/66
[2018-10-07] MEDS ORDERED: NS 1,000 ML IV SCH (18:30)
[2018-10-07 20:00] VITALS: BP 126/69
[2018-10-07] MEDS ORDERED: MIRALAX *UNIT DOSE* 17GM PACKET PO SCH (21:00)
[2018-10-07] MEDS ORDERED: LORazepam 2 MG/ML VIAL (J2060) IV SCH (21:00)
--- NOTE | 2018-10-07 21:18 | ECGEPIP ---
Stationary ECG Study [facility] - ED Test Date: 2018-10-07 Pat Name: JULIET MEYER Department: Room: - Gender: M [employer]ist: : 1965 Requested By: Andrew Javier Order Number: [id number] Reading MD: Anabella De Santiago Measurements Intervals [place] Rate: 94 P: 14 CO: 163 QRS: 93 QRSD: 102 T: 8 QT: 280 QTc: 350 Interpretive Statements SINUS RHYTHM BORDERLINE RIGHT AXIS DEVIATION NONSPECIFIC T-WAVE ABNORMALITY NO PRIOR FOR COMPARISON Electronically Signed On 10-07-2018 21:17:51 EDT by Anabella De Santiago
[2018-10-07] MEDS: LORazepam 2 MG/ML VIAL (J2060) IV SCH (22:31)
[2018-10-07] MEDS: carBAMazepine XR 200 MG TAB PO SCH (22:40)
[2018-10-07 23:59] VITALS: BP 141/69
[2018-10-08 04:00] VITALS: BP 134/64
[2018-10-08 05:07] LABS: HEMATOCRIT 30.7 % (42.0-52.0); MEAN CORPUSCULAR HEMOGLOBIN 30.7 pg (27.0-33.0); MEAN CORPUSCULAR HGB CONC 33.6 g/dl (32.0-36.5); MEAN CORPUSCULAR VOLUME 91.4 fl (80.0-96.0); PLATELET COUNT, AUTOMATED 127 10^3/uL (150-450); RED BLOOD COUNT 3.36 10^6/uL (4.30-6.10); WHITE BLOOD COUNT 6.6 10^3/uL (4.0-10.0)
[2018-10-08 05:22] LABS: BLOOD UREA NITROGEN 14 MG/DL (7-18); CALCIUM LEVEL 7.8 MG/DL (8.5-10.1); CARBON DIOXIDE LEVEL 26 MEQ/L (21-32); CHLORIDE LEVEL 111 MEQ/L (98-107); CREATININE FOR GFR 0.63 MG/DL (0.70-1.30); GLOMERULAR FILTRATION RATE > 60.0 (>56); GLUCOSE, FASTING 95 MG/DL (70-100); POTASSIUM SERUM 4.3 MEQ/L (3.5-5.1); SODIUM LEVEL 139 MEQ/L (136-145)
[2018-10-08 05:31] LABS: HEMOGLOBIN 10.3 g/dl (13.5-17.5)
[2018-10-08 07:04] VITALS: BP 140/67
[2018-10-08] MEDS ORDERED: SLF 3 ML SYR IV PRN (08:30)
[2018-10-08] MEDS: FERROUS SULFATE 325MG TAB PO SCH (08:43)
[2018-10-08] MEDS: PARoxetine 20 MG TAB PO SCH (08:44)
[2018-10-08] MEDS: LORazepam 2 MG/ML VIAL (J2060) IV SCH (08:44)
--- NOTE | 2018-10-08 09:57 | DS.PDOC ---
Discharge Summary General Date of Admission October 07, 2018 at 13:50 Date of Discharge october 08, 2018 Discharge Summary DISCHARGE DIAGNOSES: RISPERDAL-INDUCED HYPOTENSION Depression. Mental retardation. 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 Anxiety. DISCHARGE MEDICATIONS: PLS SEE BELOW HISTORY OF PRESENTING ILLNESS: This is a 52-year-old [facility] ([facility]) resident who was in his usual state of health until this morning, when he was found to be lethargic. According to the [facility] staff, who is providing the history, as the patient is nonverbal, patient got up usually at 8:00 a.m., h e sat on his chair and was able to eat his breakfast. At around 10:00 a.m., patient was called to take his medications. He was found to be off balance and slow, almost falling over as he walked over to get his medications. There has been no changes in his medications aside from Risperdal for the past three days. According to staff, patient has had no fever, chills, nausea, vomiting, abdominal pain, diarrhea or constipation. He has been in his usual state of health aside from increased listlessness and lethargy since the Risperdal has been started. Patient otherwise denies any dysuria, urgency or frequency. Patient usually signs and screams when he is distressed. When seen in the emergency room, he was found to be severely hypotensive, with systolic pressure of 82/51. According to staff over at [facility], he was found to have a blood pressure of 58/41. Patient received 1 liter bolus with subsequent improvement to 103/58. White count slightly elevated 15.8. Urine still pending. Chest x-ray had no change, stable chronic changes with poor ventilation, no new infiltrates and heart is not enlarged, with an old healed left clavicular fracture. Hospitalist was called to admit for hypotension. HOSPITAL COURSE: Risperdal-induced orthostatic Hypotension. Patient is found to be hypotensive, most likely secondary to Risperdal. At this time, he has responded to IV fluid hydration, is afebrile despite slight increase in white count. No empiric antibiotics will be given. Will check for procalcitonin level, erythrocyte sedimentation rate and C- reactive protein (CRP). Should the patient have a fever, patient will be empirically started on antibiotics. He is nonverbal and unable to provide any history. We have asked for a stat urinalysis, which has not been sent, as well as other function tests, sedimentation rate, procalcitonin, CRP and blood cultures, systemic inflammatory swabs. Tachycardia and hypotension. No signs of infection. No empiric antibiotics. Check lactic acid. Anxiety/depression. Resume home medications. History of seizure disorder due to microencephaly. Resume carbamazepine. Check carbamazepine level. History of profound mental retardation. [facility] sitter will be with him at all times. Iron deficiency. Continue ferrous sulfate. Chronic constipation. Continue on bowel regimen. Deep venous thrombosis (DVT) prophylaxis. Compression stockings. CODE STATUS: FULL CODE. DISCHARGE PHYSICAL EXAMINATION: VITALS PLS SEE BELOW GENERAL: Patient has a right-sided ptosis, which is chronic, according to [facility] staff. He is awake, alert, oriented to person only. He is nonverbal at baseline and screams and moans at the bedside. 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 He has purposeful movements. Follows commands, but does not speak. Poor dentition with dry mucous membranes. No jugular venous distention (JVD). Thyromegaly. LUNGS: Clear to auscultation. No wheezing, rales or rhonchi. HEART: S1, S2. Sinus tachycardia. ABDOMEN: Soft, nontender, nondistended. EXTREMITIES: Have no cyanosis, clubbing or any pitting edema. EKG: Sinus rhythm, ventricular rate of 94, right axis deviation, QT 280, QTc 331. ADMISSION LABORATORY DATA: White count 15.8, hemoglobin 13, hematocrit 41, platelet count 168. Sodium 133, potassium 4.8, chloride 104, bicarbonate 22, BUN 17, creatinine 1.3, glucose 107, calcium 7.9. Total CK 107, MB fraction 2. Troponin less than 0.02. DISCHARGE LABS, MICROBIOLOGY, IMAGING STUDIES; PLS SEE BELOW Chest x-ray: No acute disease, stable chronic findings. No change since prior study of 10/31/2016. Heart is not enlarged. Old healed left clavicular fracture. Poor ventilation. Slightly prominent interstitium is unchanged. Mediastinal silhouette is unchanged. TIME SPENT ON DISCHARGE: 30 MIN Vital Signs/I&Os Vital Signs Date Time Temp Pulse Resp B/P (MAP) Pulse Ox O2 Delivery O2 Flow Rate FiO2 10/08/18 07:04 99.2 86 18 140/67 (91) 93 5/5/19 15:15 Room Air I&O- Last 24 Hours up to 6 AM 10/08/18 06:00 Intake Total 2100 ml Balance 2100 ml Laboratory Data Labs 24H Laboratory Tests 2 10/07/18 12:02: Nucleated Red Blood Cells % (auto) 0.0, Anion Gap 7L, Glomerular Filtration Rate > 60.0, Blood Urea Nitrogen 17, Creatinine 1.30, Sodium Level 133L, Potassium Level 4.8, Chloride Level 104, Carbon Dioxide Level 22, Calcium Level 7.9L, Total Creatine Kinase 107, Creatine Kinase MB 2.0, Creatine Kinase MB Relative I ndex 1.59, Troponin I < 0.02, Carbamazepine (Tegretol) Level 4.3 10/07/18 15:31: Erythrocyte Sedimentation Rate 3, Lactic Acid Level 2.4*H, Aspartate Amino Transf (AST/SGOT) 9, Alanine Aminotransferase (ALT/SGPT) 14, Alkaline Phosphatase 81, Total Bilirubin 0.3, Direct Bilirubin < 0.1, C-Reactive Protein, Quantitative 0.74H, Total Protein 6.4, Albumin 3.5, Albumin/Globulin Ratio 1.21, Thyroid Stimulating Hormone (TSH) 0.708 10/07/18 20:01: Lactic Acid Followup at 4 Hours 1.5 10/08/18 04:39: Nucleated Red Blood Cells % (auto) 0.0, Anion Gap 2L, Glomerular Filtration Rate > 60.0, Blood Urea Nitrogen 14, Creatinine 0.63#L, Sodium Level 139, Potassium Level 4.3, Chloride Level 111H, Carbon Dioxide Level 26, Calcium Level 7.8L CBC/BMP Laboratory Tests 10/07/18 12:02 Red Blood Count 4.48, Mean Corpuscular Volume 93.5, Mean Corpuscular Hemoglobin 30.8, Mean Corpuscular Hemoglobin Concent 32.9, Red Cell Distribution Width 13.1, Calcium Level 7.9 L 10/08/18 04:39 Red Blood Count 3.36 L, Mean Corpuscular Volume 91.4, Mean Corpuscular Hemoglobin 30.7, Mean Corpuscular Hemoglobin Concent 33.6, Red Cell Distribution Width 13.3, Calcium Level 7.8 L Microbiology Microbiology 10/07/18 Blood Culture, Received Pending Discharge Medications Scheduled Carbamazepine (Carbamazepine ER) 200 Mg Cpmp.12hr, 200 MG PO BID, (Reported) Ferrous Sulfate (Ferrous Sulfate) 325 Mg Tab, 325 MG PO DAILY, (Reported) Lorazepam (Lorazepam) 1 Mg Tab, 1 MG PO QID, (Reported) Omeprazole (Omeprazole) 20 Mg Cap, 40 MG QHS, (Reported) Paroxetine HCl (Paroxetine HCl) 40 Mg Tab, 40 MG PO DAILY, (Reported) Polyethylene Glycol 3350 (Miralax) 119 Gm Powder, 17 GM PO QPM, (Reported) dilute in 8 ounces of water or juice Thioridazine HCl (Thioridazine HCl) 25 Mg Tablet, 100 MG PO QID, (Reported) Trihexyphenidyl HCl (Trihexyphenidyl HCl) 2 Mg/5 Ml Elixir, 25 ML PO BID, (Reported) Scheduled PRN Bisacodyl (Bisacodyl) 5 Mg Tablet.dr, 5 MG PO ASDIRECTED PRN for CONSTIPATION, (Reported) GIVE ON DAY 3 OF NO BM Allergies Coded Allergies: lindane (Verified Allergy, Unknown, 10/07/18) mafenide (Verified Allergy, Unknown, 10/07/18) TITUS BRAND MD October 08, 2018 09:57
[2018-10-08] MEDS: carBAMazepine XR 200 MG TAB PO SCH (11:30)
[2018-10-08] MEDS ORDERED: SLF 3 ML SYR IV SCH (14:00)
== END 2018-10-08 11:46 | disposition home or self-care (01) | DRG 312 ==
LOC: EDBD 11:16 → M ED 11:16 → M ED INP 13:50 → M PCU 17:10
PROVIDERS: ADMIT General Practice; ATTEND General Practice
DX: I95.2 Hypotension due to drugs (principal); F73 Profound intellectual disabilities; T43.595A Adverse effect of other antipsychotics and neuroleptics, initial encounter; F41.9 Anxiety disorder, unspecified; F32.9 Major depressive disorder, single episode, unspecified; G40.909 Epilepsy, unspecified, not intractable, without status epilepticus; Q02 Microcephaly; K59.09 Other constipation; E61.1 Iron deficiency; Z79.899 Other long term (current) drug therapy; H02.401 Unspecified ptosis of right eyelid

== ENCOUNTER → 2018-11-30 | Outpatient (REF) | payer MEDICARE, MEDICAID ==
[~2018-11-30] MED LIST changes: +BISA5TAB5 PO; +CARB200C4 PO; +MIRA3350 PO; +RISP1SS PO; +RISP1TAB3 PO; +THIO25TA PO; +TRIH0.4E PO
[2018-11-30 18:05] LABS: APPEARANCE, URINE CLOUDY (CLEAR); BACTERIA, URINE AUTO 2+ (NEGATIVE); BILIRUBIN, URINE AUTO NEGATIVE (NEGATIVE); BLOOD, URINE BLOOD NEGATIVE (NEGATIVE); COLOR, URINE YELLOW (YELLOW); GLUCOSE, URINE (UA) AUTO NEGATIVE (NEGATIVE); KETONE, URINE AUTO NEGATIVE (NEGATIVE); LEUKOCYTE ESTERASE, URINE AUTO 3+ (NEGATIVE); MUCUS, URINE SMALL (NEGATIVE); NITRITE, URINE AUTO NEGATIVE (NEGATIVE); PROTEIN, URINE AUTO NEGATIVE (NEGATIVE); RBC, URINE AUTO 1 /HPF (0-3); SPECIFIC GRAVITY URINE AUTO 1.014 (1.002-1.035); SQUAMOUS EPITHELIAL CELL UR AU 1 /HPF (0-6); WBC, URINE AUTO TNTC /HPF (0-3)
== END ==
LOC: M LAB REF 16:18
PROVIDERS: ATTEND Physician Assistant Medical
DX: N39.0 Urinary tract infection, site not specified (principal)

== ENCOUNTER → 2018-12-11 | Outpatient (REF) | payer MEDICARE, MEDICAID ==
[~2018-12-11] MED LIST changes: -OMEP20CA3; +OMEP20CA4
[2018-12-11 11:08] LABS: AMORPHOUS SEDIMENT SMALL (NEGATIVE); APPEARANCE, URINE CLEAR (CLEAR); BACTERIA, URINE AUTO NEGATIVE (NEGATIVE); BILIRUBIN, URINE AUTO NEGATIVE (NEGATIVE); BLOOD, URINE BLOOD NEGATIVE (NEGATIVE); COLOR, URINE YELLOW (YELLOW); GLUCOSE, URINE (UA) AUTO NEGATIVE (NEGATIVE); KETONE, URINE AUTO NEGATIVE (NEGATIVE); LEUKOCYTE ESTERASE, URINE AUTO NEGATIVE (NEGATIVE); NITRITE, URINE AUTO NEGATIVE (NEGATIVE); PROTEIN, URINE AUTO NEGATIVE (NEGATIVE); RBC, URINE AUTO 2 /HPF (0-3); SPECIFIC GRAVITY URINE AUTO 1.008 (1.002-1.035); SQUAMOUS EPITHELIAL CELL UR AU 0 /HPF (0-6); UROBILINOGEN, URINE AUTO 0.2 mg/dL (0.0-2.0); WBC, URINE AUTO 0 /HPF (0-3)
== END ==
LOC: M LAB REF 10:52
PROVIDERS: ATTEND Family Medicine
DX: N39.0 Urinary tract infection, site not specified (principal)

== ENCOUNTER 2019-02-01 10:27 | Emergency (ER) | payer MEDICARE, MEDICAID ==
[~2019-02-01] VITALS: Ht 157.5 cm; Wt 72.7 kg
[~2019-02-01 10:27] MED LIST changes: +HYDR-3363 PO
[2019-02-01] MEDS ORDERED: ATIV1TAB7 (10:35)
[2019-02-01] MEDS ORDERED: TRIH5TAB PO (10:35)
[2019-02-01] MEDS ORDERED: DULC5TAB PO (10:35)
[2019-02-01 12:42] LABS: BASO % 0.4 % (0.0-1.0); EOS # 0.1 10^3/uL (0.0-0.50); EOS % 1.5 % (0.0-3.0); HEMATOCRIT 37.6 % (42.0-52.0); HEMOGLOBIN 12.8 g/dl (13.5-17.5); LYMPH % 17.6 % (24.0-44.0); MEAN CORPUSCULAR HEMOGLOBIN 30.9 pg (27.0-33.0); MEAN CORPUSCULAR VOLUME 90.8 fl (80.0-96.0); MONO # 0.5 10^3/uL (0.0-0.8); MONO % 8.2 % (0.0-5.0); NEUTROPHILS # 3.9 10^3/uL (1.8-7.7); NEUTROPHILS % 71.9 % (36.0-66.0); PLATELET COUNT, AUTOMATED 183 10^3/uL (150-450); RED BLOOD COUNT 4.14 10^6/uL (4.30-6.10); WHITE BLOOD COUNT 5.5 10^3/uL (4.0-10.0)
[2019-02-01 13:02] LABS: ERYTHROCYTE SEDIMENTATION RATE 9 mm/hr (0-20)
[2019-02-01 13:07] LABS: BLOOD UREA NITROGEN 10 MG/DL (7-18); C REACTIVE PROTEIN QUANTITATIV 1.37 MG/DL (0.00-0.30); CALCIUM LEVEL 9.1 MG/DL (8.5-10.1); CARBON DIOXIDE LEVEL 31 MEQ/L (21-32); CHLORIDE LEVEL 98 MEQ/L (98-107); CREATININE FOR GFR 0.56 MG/DL (0.70-1.30); GLOMERULAR FILTRATION RATE > 60.0 (>56); GLUCOSE, FASTING 95 MG/DL (70-100); POTASSIUM SERUM 4.3 MEQ/L (3.5-5.1); SODIUM LEVEL 137 MEQ/L (136-145)
[2019-02-01 13:25] VITALS: BP 131/69
[2019-02-01] MEDS ORDERED: BENA25CA4 PO (13:25)
[2019-02-01] MEDS ORDERED: HYDR5CR TOP (13:25)
== END 2019-02-01 13:54 | disposition home or self-care (01) ==
LOC: M ED 10:27
DX: L25.9 Unspecified contact dermatitis, unspecified cause (principal); R56.9 Unspecified convulsions; F79 Unspecified intellectual disabilities; K21.9 Gastro-esophageal reflux disease without esophagitis; F41.9 Anxiety disorder, unspecified; Z88.8 Allergy status to other drugs, medicaments and biological substances; Z79.899 Other long term (current) drug therapy

== ENCOUNTER 2019-02-08 08:55 | Day surgery (SDC) | payer MEDICARE, MEDICAID ==
[~2019-02-08] VITALS: Ht 157.5 cm; Wt 50.3 kg
[~2019-02-08 08:55] MED LIST changes: +ATIV1TAB7; +BENA25CA4 PO; +DULC5TAB PO; +HYDR5CR TOP; +LIDOCAINE 2% INJ 100 MG/5 ML SDV (FOR ANES.) As Ordered ONE; +NS 1,000 ML IV ONE; +PROPOFOL 200 MG/20 ML VIAL As Ordered ONE
[2019-02-08] MEDS ORDERED: fentaNYL 100 MCG/2 ML INJECTION (J3010) As Ordered ONE (08:57)
[2019-02-08] MEDS ORDERED: MIDAZOLAM 10MG/5ML SYRUP PO ONE (10:00)
[2019-02-08] MEDS ORDERED: MIDAZOLAM 10MG/5ML SYRUP As Ordered ONE (10:03)
[2019-02-08] MEDS ORDERED: ePHEDrine SULFATE 25 MG/5 ML(5MG/ML) SYRINGE As Ordered ONE (11:22)
--- NOTE | 2019-02-08 11:39 | ROOR ---
Patient Name: Tyler Mulligan Procedure Date: 02/08/2019 10:38 AM Date of : 1965 Age: 53 Room: [facility] Gender: Male Note Status: Finalized Procedure: Upper GI endoscopy Indications: Persistent vomiting of unknown cause, Weight loss Providers: Naeem Jose MD Referring MD: Cristo Rick MD Requesting Provider: Medicines: Monitored Anesthesia Care Complications: No immediate complications. Procedure: Pre-Anesthesia Assessment: - Prior to the procedure, a History and Physical was performed, and patient medications and allergies were reviewed. The patient is competent. The risks and benefits of the procedure and the sedation options and risks were discussed with the patient. All questions were answered and informed consent was obtained. Patient identification and proposed procedure were verified by the physician, the nurse and the anesthesiologist in the procedure room. Mental Status Examination: alert and oriented. Airway Examination: normal oropharyngeal airway and neck mobility. Respiratory Examination: clear to auscultation. CV Examination: normal. Prophylactic Antibiotics: The patient does not require prophylactic antibiotics. Prior Anticoagulants: The patient has taken no previous anticoagulant or antiplatelet agents. ASA Grade Assessment: II - A patient with mild systemic disease. After reviewing the risks and benefits, the patient was deemed in satisfactory condition to undergo the procedure. The anesthesia plan was to use monitored anesthesia care (MAC). Immediately prior to administration of medications, the patient was re-assessed for adequacy to receive sedatives. The heart rate, respiratory rate, oxygen saturations, blood pressure, adequacy of pulmonary ventilation, and response to care were monitored throughout the procedure. The physical status of the patient was re-assessed after the procedure. The Endoscope was introduced through the mouth, and advanced to the second part of duodenum. The upper GI endoscopy was accomplished without difficulty. The patient tolerated the procedure well. Findings: One tongue of salmon-colored mucosa was present from 34 to 38 cm. The maximum longitudinal extent of these esophageal mucosal changes was 4 cm in length. Biopsies were taken with a cold forceps for histology. Verification of patient identification for the specimen was done by the physician and nurse using the patient's name, date and medical record number. Estimated blood loss was minimal. The Z-line was irregular and was found 38 cm from the incisors. Patchy moderate inflammation characterized by congestion (edema), erythema, friability and granularity was found in the gastric body and in the gastric antrum. Biopsies were taken with a cold forceps for Helicobacter pylori testing. Localized mild mucosal variance characterized by glandular appearance was found in the duodenal bulb. Biopsies were taken with a cold forceps for histology. The second portion of the duodenum was normal. Biopsies for histology were taken with a cold forceps for evaluation of celiac disease. 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 Biopsied. - Z-line irregular, 38 cm from the incisors. - Gastritis. Biopsied. - Mucosal variant in the duodenum. Biopsied. - Normal second portion of the duodenum. Biopsied. Recommendation: - Patient has a contact number available for emergencies. The signs and symptoms of potential delayed complications were discussed with the patient. Return to normal activities tomorrow. Written discharge instructions were provided to the patient. - Resume previous diet. - Continue present medications. - Use Prilosec (omeprazole) 40 mg PO Daily - to be taken slip cover sewer on empty stomach for 1 year. - Await pathology results. - Follow an antireflux regimen. - Repeat upper endoscopy in 3 years for surveillance based on pathology results. - Telephone ERCP clinic for pathology results in 2 weeks. - Return to primary care physician. Naeem Jose MD Naeem Jose MD 02/08/2019 11:39:14 AM Electronically signed by Naeem Jose MD Number of Addenda: 0 Note Initiated On: 02/08/2019 10:38 AM Estimated Blood Loss: Estimated blood loss was minimal.
--- NOTE | 2019-02-08 11:44 | ROOR ---
Patient Name: Tyler Mulligan Procedure Date: 02/08/2019 10:39 AM Date of : 1965 Age: 53 Room: [facility] Gender: Male Note Status: Finalized Procedure: Colonoscopy Indications: Weight loss Providers: Naeem Jose MD Referring MD: Cristo Rick MD Requesting Provider: Medicines: Monitored Anesthesia Care Complications: No immediate complications. Procedure: Pre-Anesthesia Assessment: - Prior to the procedure, a History and Physical was performed, and patient medications and allergies were reviewed. The patient is competent. The risks and benefits of the procedure and the sedation options and risks were discussed with the patient. All questions were answered and informed consent was obtained. Patient identification and proposed procedure were verified by the physician, the nurse and the anesthesiologist in the procedure room. Mental Status Examination: alert and oriented. Airway Examination: normal oropharyngeal airway and neck mobility. Respiratory Examination: clear to auscultation. CV Examination: normal. Prophylactic Antibiotics: The patient does not require prophylactic antibiotics. Prior Anticoagulants: The patient has taken no previous anticoagulant or antiplatelet agents. ASA Grade Assessment: II - A patient with mild systemic disease. After reviewing the risks and benefits, the patient was deemed in satisfactory condition to undergo the procedure. The anesthesia plan was to use monitored anesthesia care (MAC). Immediately prior to administration of medications, the patient was re-assessed for adequacy to receive sedatives. The heart rate, respiratory rate, oxygen saturations, blood pressure, adequacy of pulmonary ventilation, and response to care were monitored throughout the procedure. The physical status of the patient was re-assessed after the procedure. The Colonoscope was introduced through the anus and advanced to the terminal ileum, with identification of the appendiceal orifice and IC valve. The colonoscopy was performed without difficulty. The patient tolerated the procedure well. The quality of the bowel preparation was fair. The terminal ileum, ileocecal valve, appendiceal orifice, and rectum were photographed. Scope insertion time was 5 minutes. Scope withdrawal time was 10 minutes. The total duration of the procedure was 15 minutes. Findings: The perianal and digital rectal examinations were normal. The terminal ileum appeared normal. The colon (entire examined portion) was significantly tortuous. Advancing the scope required withdrawing and reinserting the scope. Extensive amounts of semi-solid stool was found from sigmoid to ascending colon, interfering with visualization. Lavage of the area was performed using a large amount of sterile water, resulting in incomplete clearance with fair visualization. Scattered moderate inflammation characterized by erythema and granularity was found from transverse colon to descending colon. Biopsies were taken with a cold forceps for histology. Verification of patient identification for the specimen was done by the physician and nurse using the patient's name, date and medical record number. Estimated blood loss was minimal. Non-bleeding external and internal hemorrhoids were found during retroflexion. The hemorrhoids were medium-sized. Impression: - Preparation of the colon was fair. - The examined portion of the ileum was normal. - Tortuous colon. - Stool from sigmoid to ascending colon. - Scattered moderate inflammation was found from transverse colon to descending colon secondary to colitis. Biopsied. - Non-bleeding external and internal hemorrhoids. Recommendation: - Patient has a contact number available for emergencies. The signs and symptoms of potential delayed complications were discussed with the patient. Return to normal activities tomorrow. Written discharge instructions were provided to the patient. - High fiber diet. - Continue present medications. - Await pathology results. - Repeat colonoscopy for screening purposes. - Telephone GI clinic for pathology results. - Return to primary care physician. Naeem Jose MD Naeem Jose MD 02/08/2019 11:44:15 AM Electronically signed by Naeem Jose MD Number of Addenda: 0 Note Initiated On: 02/08/2019 10:39 AM Estimated Blood Loss: Estimated blood loss: none.
[2019-02-08 12:12] VITALS: BP 145/67
== END 2019-02-08 12:32 | disposition home or self-care (01) ==
LOC: M OPP 08:55
PROVIDERS: ATTEND Internal Medicine Gastroenterology
DX: K64.8 Other hemorrhoids (principal); K52.9 Noninfective gastroenteritis and colitis, unspecified; K22.8 Other specified diseases of esophagus; K29.70 Gastritis, unspecified, without bleeding; Q43.8 Other specified congenital malformations of intestine; K31.89 Other diseases of stomach and duodenum; R11.10 Vomiting, unspecified; R63.4 Abnormal weight loss; Z79.899 Other long term (current) drug therapy; Z88.8 Allergy status to other drugs, medicaments and biological substances

== ENCOUNTER → 2019-08-30 | Outpatient (CLI) | payer MEDICARE, MEDICAID ==
[~2019-08-30] MED LIST changes: +BISA5TAB13 PO; -BISA5TAB5 PO; -LIDOCAINE 2% INJ 100 MG/5 ML SDV (FOR ANES.) As Ordered ONE; -LORA1TAB12 PO; +LORA1TAB4 PO; -NS 1,000 ML IV ONE; +OMEP1CAP73; -OMEP20CA4; -PROPOFOL 200 MG/20 ML VIAL As Ordered ONE; +QUET100T2; -QUET1TAB8
== END ==
LOC: M WUC 10:18
PROVIDERS: ATTEND Family Medicine
DX: Z53.9 Procedure and treatment not carried out, unspecified reason (principal); M79.671 Pain in right foot

== ENCOUNTER → 2020-04-08 | Outpatient (CLI) | payer MEDICARE, MEDICAID ==
[2020-04-08 08:25] LABS: HEMATOCRIT 40.1 % (42.0-52.0); HEMOGLOBIN 12.6 g/dl (13.5-17.5); MEAN CORPUSCULAR HEMOGLOBIN 27.5 pg (27.0-33.0); MEAN CORPUSCULAR HGB CONC 31.4 g/dl (32.0-36.5); MEAN CORPUSCULAR VOLUME 87.6 fl (80.0-96.0); PLATELET COUNT, AUTOMATED 208 10^3/uL (150-450); RED BLOOD COUNT 4.58 10^6/uL (4.30-6.10); WHITE BLOOD COUNT 3.7 10^3/uL (4.0-10.0)
[2020-04-08 08:51] LABS: ALBUMIN 3.9 GM/DL (3.2-5.2); ALT/SGPT 16 U/L (12-78); BILIRUBIN,TOTAL 0.4 MG/DL (0.2-1.0); BLOOD UREA NITROGEN 7 MG/DL (7-18); CARBAMAZEPINE (TEGRETOL) LEVEL 13.4 UG/ML (4.0-10.0); CARBON DIOXIDE LEVEL 32 MEQ/L (21-32); CHLORIDE LEVEL 106 MEQ/L (98-107); CHOLESTEROL LEVEL 121 MG/DL (<200); CHOLESTEROL RISK RATIO 2.951 (<5); GLOMERULAR FILTRATION RATE > 60.0 (>56); GLUCOSE, FASTING 97 MG/DL (70-100); HDL CHOLESTEROL 41 MG/DL (>40); LDL CHOLESTEROL 68 MG/DL (<100); NON-HDL-C 80 MG/DL; POTASSIUM SERUM 4.7 MEQ/L (3.5-5.1); PROSTATIC SPECIFIC AG MONITOR 1.08 NG/ML (< 4.00); SODIUM LEVEL 142 MEQ/L (136-145); TOTAL PROTEIN 7.2 GM/DL (6.4-8.2); TRIGLYCERIDES LEVEL 61 MG/DL (<150)
== END ==
LOC: M LAB 07:56
PROVIDERS: ATTEND Family Medicine
DX: Z12.5 Encounter for screening for malignant neoplasm of prostate (principal); Z79.899 Other long term (current) drug therapy; R97.20 Elevated prostate specific antigen [PSA]

== ENCOUNTER → 2020-07-13 | Outpatient (CLI) | payer MEDICARE, MEDICAID ==
[~2020-07-13] MED LIST changes: -BISA5TAB13 PO; +BISA5TAB15 PO; -QUET1TAB10; +QUET300T2; +RISP-8 PO; -RISP1TAB3 PO
[2020-07-13 11:01] LABS: BASO % 0.8 % (0.0-1.0); EOS # 0.4 10^3/uL (0.0-0.5); EOS % 9.5 % (0.0-3.0); HEMATOCRIT 37.9 % (42.0-52.0); LYMPH # 1.1 10^3/uL (1.5-5.0); LYMPH % 28.9 % (24.0-44.0); MEAN CORPUSCULAR HEMOGLOBIN 27.7 pg (27.0-33.0); MEAN CORPUSCULAR HGB CONC 31.7 g/dl (32.0-36.5); MEAN CORPUSCULAR VOLUME 87.5 fl (80.0-96.0); MONO # 0.4 10^3/uL (0.0-0.8); MONO % 9.7 % (0.0-5.0); NEUTROPHILS # 1.9 10^3/uL (1.5-8.5); NEUTROPHILS % 50.8 % (36.0-66.0); PLATELET COUNT, AUTOMATED 216 10^3/uL (150-450); RED BLOOD COUNT 4.33 10^6/uL (4.30-6.10); WHITE BLOOD COUNT 3.7 10^3/uL (4.0-10.0)
[2020-07-13 11:49] LABS: ALBUMIN 3.7 GM/DL (3.2-5.2); ALT/SGPT 16 U/L (12-78); AMYLASE 52 U/L (25-115); BILIRUBIN,TOTAL 0.3 MG/DL (0.2-1.0); BLOOD UREA NITROGEN 14 MG/DL (7-18); CALCIUM LEVEL 8.7 MG/DL (8.5-10.1); CARBAMAZEPINE (TEGRETOL) LEVEL 13.3 UG/ML (4.0-10.0); CARBON DIOXIDE LEVEL 32 MEQ/L (21-32); CHLORIDE LEVEL 102 MEQ/L (98-107); CREATININE FOR GFR 0.63 MG/DL (0.70-1.30); GLOMERULAR FILTRATION RATE > 60.0 (>56); GLUCOSE, FASTING 95 MG/DL (70-100); LIPASE 135 U/L (73-393); POTASSIUM SERUM 4.3 MEQ/L (3.5-5.1); SODIUM LEVEL 138 MEQ/L (136-145); TOTAL PROTEIN 6.8 GM/DL (6.4-8.2)
== END ==
LOC: M LAB 10:03
PROVIDERS: ATTEND Family Medicine
DX: Z79.899 Other long term (current) drug therapy (principal)

== ENCOUNTER → 2020-08-15 | Outpatient (CLI) | payer MEDICARE, MEDICAID | LOC: M LABSMTC 09:58 | PROVIDERS: ATTEND Anesthesiology | DX: Z01.812 Encounter for preprocedural laboratory examination (principal); Z20.822 Contact with and (suspected) exposure to COVID-19 ==

== ENCOUNTER → 2020-09-13 | Outpatient (CLI) | payer MEDICARE, MEDICAID ==
[~2020-09-13] MED LIST changes: -ATIV1TAB7; +ATIV1TAB7 PO; +RISP1TAB42 PO; +artane PO
== END ==
LOC: M LABSMTC 10:46
PROVIDERS: ATTEND Anesthesiology
DX: Z11.52 Encounter for screening for COVID-19 (principal)

== ENCOUNTER 2020-09-18 08:16 | Day surgery (SDC) | payer MEDICARE, MEDICAID ==
[~2020-09-18] VITALS: Ht 157.5 cm; Wt 63.5 kg
[~2020-09-18 08:16] MED LIST changes: +NS 1,000 ML IV ONE
== END 2020-09-18 08:51 | disposition home or self-care (01) ==
LOC: M OPP 08:16
PROVIDERS: ATTEND Internal Medicine Gastroenterology
DX: K22.70 Barrett's esophagus without dysplasia (principal); Z53.8 Procedure and treatment not carried out for other reasons

== ENCOUNTER → 2020-11-01 | Outpatient (CLI) | payer MEDICARE, MEDICAID ==
[~2020-11-01] MED LIST changes: -NS 1,000 ML IV ONE
== END ==
LOC: M LABSMTC 09:13
PROVIDERS: ATTEND Anesthesiology
DX: Z01.812 Encounter for preprocedural laboratory examination (principal); Z11.52 Encounter for screening for COVID-19

== ENCOUNTER → 2020-11-06 | Day surgery (SDC) | payer MEDICARE, MEDICAID ==
[~2020-11-06] VITALS: Ht 157.5 cm; Wt 54.9 kg
[~2020-11-06] MED LIST changes: +NS 1,000 ML IV ONE
== END | disposition home or self-care (01) ==
LOC: M OPP 08:20
PROVIDERS: ATTEND Internal Medicine Gastroenterology
DX: K22.711 Barrett's esophagus with high grade dysplasia (principal); Z53.8 Procedure and treatment not carried out for other reasons

== ENCOUNTER → 2021-03-12 | Outpatient (CLI) | payer MEDICARE, MEDICAID ==
[~2021-03-12] MED LIST changes: -NS 1,000 ML IV ONE; -OLAN10TA2; +OLAN1TAB20
[2021-03-12 12:47] LABS: BASO % 0.6 % (0.0-1.0); EOS # 0.1 10^3/uL (0.0-0.5); EOS % 1.4 % (0.0-3.0); HEMATOCRIT 38.7 % (42.0-52.0); LYMPH # 0.9 10^3/uL (1.5-5.0); MEAN CORPUSCULAR HGB CONC 33.6 g/dl (32.0-36.5); MEAN CORPUSCULAR VOLUME 83.2 fl (80.0-96.0); MONO # 0.3 10^3/uL (0.0-0.8); MONO % 6.5 % (2.0-8.0); NEUTROPHILS # 3.8 10^3/uL (1.5-8.5); NEUTROPHILS % 74.1 % (36.0-66.0); PLATELET COUNT, AUTOMATED 266 10^3/uL (150-450); RED BLOOD COUNT 4.65 10^6/uL (4.30-6.10); WHITE BLOOD COUNT 5.1 10^3/uL (4.0-10.0)
[2021-03-12 14:19] LABS: ALBUMIN 4.2 GM/DL (3.2-5.2); ALT/SGPT 17 U/L (12-78); BILIRUBIN,TOTAL 0.3 MG/DL (0.2-1.0); BLOOD UREA NITROGEN 9 MG/DL (7-18); CALCIUM LEVEL 8.9 MG/DL (8.5-10.1); CARBAMAZEPINE (TEGRETOL) LEVEL 10.9 UG/ML (4.0-10.0); CARBON DIOXIDE LEVEL 27 MEQ/L (21-32); CHLORIDE LEVEL 96 MEQ/L (98-107); GLOMERULAR FILTRATION RATE > 60.0 (>56); GLUCOSE, FASTING 114 MG/DL (70-100); POTASSIUM SERUM 4.3 MEQ/L (3.5-5.1); SODIUM LEVEL 130 MEQ/L (136-145); TOTAL PROTEIN 7.7 GM/DL (6.4-8.2)
== END ==
LOC: M WUC 08:42
PROVIDERS: ATTEND Psychiatry & Neurology Neurology
DX: R56.9 Unspecified convulsions (principal)

== ENCOUNTER → 2021-03-12 | Outpatient (CLI) | payer MEDICARE, MEDICAID ==
[2021-03-12 12:47] LABS: BASO % 0.4 % (0.0-1.0); EOS # 0.1 10^3/uL (0.0-0.5); EOS % 1.6 % (0.0-3.0); HEMATOCRIT 39.5 % (42.0-52.0); HEMOGLOBIN 13.3 g/dl (13.5-17.5); LYMPH # 0.8 10^3/uL (1.5-5.0); LYMPH % 16.6 % (24.0-44.0); MEAN CORPUSCULAR HEMOGLOBIN 28.4 pg (27.0-33.0); MEAN CORPUSCULAR HGB CONC 33.7 g/dl (32.0-36.5); MEAN CORPUSCULAR VOLUME 84.4 fl (80.0-96.0); MONO # 0.3 10^3/uL (0.0-0.8); MONO % 6.1 % (2.0-8.0); NEUTROPHILS # 3.8 10^3/uL (1.5-8.5); NEUTROPHILS % 75.1 % (36.0-66.0); PLATELET COUNT, AUTOMATED 255 10^3/uL (150-450); RED BLOOD COUNT 4.68 10^6/uL (4.30-6.10); WHITE BLOOD COUNT 5.1 10^3/uL (4.0-10.0)
[2021-03-12 14:43] LABS: ALBUMIN 4.3 GM/DL (3.2-5.2); ALT/SGPT 18 U/L (12-78); BILIRUBIN,TOTAL 0.3 MG/DL (0.2-1.0); BLOOD UREA NITROGEN 10 MG/DL (7-18); CALCIUM LEVEL 9.1 MG/DL (8.5-10.1); CARBAMAZEPINE (TEGRETOL) LEVEL 10.7 UG/ML (4.0-10.0); CARBON DIOXIDE LEVEL 28 MEQ/L (21-32); CHLORIDE LEVEL 95 MEQ/L (98-107); CHOLESTEROL LEVEL 150 MG/DL (<200); CHOLESTEROL RISK RATIO 3.191 (<5); CREATININE FOR GFR 0.59 MG/DL (0.70-1.30); GLOMERULAR FILTRATION RATE > 60.0 (>56); GLUCOSE, FASTING 117 MG/DL (70-100); HDL CHOLESTEROL 47 MG/DL (>40); LDL CHOLESTEROL 91 MG/DL (<100); NON-HDL-C 103 MG/DL; POTASSIUM SERUM 4.2 MEQ/L (3.5-5.1); SODIUM LEVEL 128 MEQ/L (136-145); TOTAL PROTEIN 7.7 GM/DL (6.4-8.2); TRIGLYCERIDES LEVEL 60 MG/DL (<150)
== END ==
LOC: M WUC 08:39
PROVIDERS: ATTEND Family Medicine
DX: Z12.5 Encounter for screening for malignant neoplasm of prostate (principal); Z79.899 Other long term (current) drug therapy; R56.9 Unspecified convulsions
CPT/HCPCS: 36415; 80053; 80061; 80156; 85025; G0103

== ENCOUNTER → 2022-02-03 | Outpatient (CLI) | payer MEDICARE, MEDICAID ==
[2022-02-03 09:08] LABS: BASO % 0.4 % (0.0-1.0); EOS # 0.5 10^3/uL (0.0-0.5); HEMATOCRIT 38.3 % (42.0-52.0); HEMOGLOBIN 12.6 g/dl (13.5-17.5); LYMPH # 1.2 10^3/uL (1.5-5.0); MEAN CORPUSCULAR HEMOGLOBIN 28.3 pg (27.0-33.0); MEAN CORPUSCULAR HGB CONC 32.9 g/dl (32.0-36.5); MEAN CORPUSCULAR VOLUME 86.1 fl (80.0-96.0); MONO # 0.4 10^3/uL (0.0-0.8); MONO % 5.1 % (2.0-8.0); NEUTROPHILS # 5.2 10^3/uL (1.5-8.5); NEUTROPHILS % 71.1 % (36.0-66.0); PLATELET COUNT, AUTOMATED 206 10^3/uL (150-450); RED BLOOD COUNT 4.45 10^6/uL (4.30-6.10); WHITE BLOOD COUNT 7.3 10^3/uL (4.0-10.0)
[2022-02-03 09:39] LABS: ALT/SGPT 15 U/L (12-78); BILIRUBIN,TOTAL 0.3 MG/DL (0.2-1.0); BLOOD UREA NITROGEN 12 MG/DL (7-18); CALCIUM LEVEL 9.2 MG/DL (8.5-10.1); CARBAMAZEPINE (TEGRETOL) LEVEL 14.3 UG/ML (4.0-10.0); CARBON DIOXIDE LEVEL 28 MEQ/L (21-32); CHLORIDE LEVEL 98 MEQ/L (98-107); CREATININE FOR GFR 0.63 MG/DL (0.70-1.30); GLOMERULAR FILTRATION RATE > 60.0 (>56); GLUCOSE, FASTING 83 MG/DL (70-100); POTASSIUM SERUM 4.4 MEQ/L (3.5-5.1); SODIUM LEVEL 132 MEQ/L (136-145); TOTAL PROTEIN 7.1 GM/DL (6.4-8.2)
== END ==
LOC: M LAB 07:41
PROVIDERS: ATTEND Psychiatry & Neurology Neurology
DX: R56.9 Unspecified convulsions (principal)

== ENCOUNTER → 2022-02-03 | Outpatient (CLI) | payer MEDICARE, MEDICAID ==
[2022-02-03 09:06] LABS: BASO % 0.5 % (0.0-1.0); EOS # 0.6 10^3/uL (0.0-0.5); EOS % 7.4 % (0.0-3.0); HEMATOCRIT 38.7 % (42.0-52.0); HEMOGLOBIN 12.7 g/dl (13.5-17.5); LYMPH # 1.2 10^3/uL (1.5-5.0); LYMPH % 15.7 % (24.0-44.0); MEAN CORPUSCULAR HEMOGLOBIN 28.3 pg (27.0-33.0); MEAN CORPUSCULAR HGB CONC 32.8 g/dl (32.0-36.5); MEAN CORPUSCULAR VOLUME 86.2 fl (80.0-96.0); MONO # 0.5 10^3/uL (0.0-0.8); MONO % 5.8 % (2.0-8.0); NEUTROPHILS # 5.4 10^3/uL (1.5-8.5); NEUTROPHILS % 70.3 % (36.0-66.0); PLATELET COUNT, AUTOMATED 210 10^3/uL (150-450); RED BLOOD COUNT 4.49 10^6/uL (4.30-6.10); WHITE BLOOD COUNT 7.7 10^3/uL (4.0-10.0)
[2022-02-03 09:38] LABS: ALT/SGPT 15 U/L (12-78); BILIRUBIN,TOTAL 0.3 MG/DL (0.2-1.0); BLOOD UREA NITROGEN 11 MG/DL (7-18); CALCIUM LEVEL 9.3 MG/DL (8.5-10.1); CARBAMAZEPINE (TEGRETOL) LEVEL 14.8 UG/ML (4.0-10.0); CARBON DIOXIDE LEVEL 28 MEQ/L (21-32); CHLORIDE LEVEL 98 MEQ/L (98-107); CREATININE FOR GFR 0.62 MG/DL (0.70-1.30); GLOMERULAR FILTRATION RATE > 60.0 (>56); GLUCOSE, FASTING 85 MG/DL (70-100); POTASSIUM SERUM 4.4 MEQ/L (3.5-5.1); SODIUM LEVEL 131 MEQ/L (136-145); TOTAL PROTEIN 7.1 GM/DL (6.4-8.2)
== END ==
LOC: M LAB 07:33
PROVIDERS: ATTEND Family Medicine
DX: Z51.81 Encounter for therapeutic drug level monitoring (principal); Z79.899 Other long term (current) drug therapy

== ENCOUNTER → 2022-03-29 | Outpatient (REF) | payer MEDICARE, MEDICAID ==
[2022-03-29 12:02] LABS: APPEARANCE, URINE MANUAL HAZY (CLEAR); COLOR, URINE MANUAL DK YELLOW (YELLOW)
[2022-03-29 12:03] LABS: GLUCOSE, URINE (UA) MANUAL NEGATIVE (NEGATIVE); KETONE, URINE MANUAL NEGATIVE (NEGATIVE); PROTEIN, URINE MANUAL NEGATIVE (NEGATIVE); UROBILINOGEN, URINE MANUAL 4 MG mg/dl (NORMAL)
[2022-03-29 12:04] LABS: BILIRUBIN, URINE MANUAL NEGATIVE (NEGATIVE); BLOOD URINE MANUAL NEGATIVE (NEGATIVE); LEUKOCYTE ESTERASE, URINE MAN NEGATIVE (NEGATIVE); NITRITE, URINE MANUAL NEGATIVE (NEGATIVE)
[2022-03-29 12:24] LABS: WBC, URINE NONE SEEN /hpf (0-3)
[2022-03-29 12:25] LABS: AMORPHOUS SEDIMENT, URINE SMALL AMOUNT (NEGATIVE); BACTERIA, URINE SMALL AMOUNT; HYALINE CAST, URINE NONE SEEN /lpf (0-1); RBC, URINE NONE SEEN /hpf (0-3); SQUAMOUS EPITHELIAL CELL URINE SMALL AMOUNT /hpf (SMALL AMT)
== END ==
LOC: M LAB REF 10:58
PROVIDERS: ATTEND Family Medicine
DX: R35.0 Frequency of micturition (principal)

== ENCOUNTER → 2022-08-24 | Outpatient (CLI) | payer MEDICARE, MEDICAID ==
[2022-08-24 10:20] LABS: BASO % 0.7 % (0.0-1.0); EOS # 0.4 10^3/uL (0.0-0.5); EOS % 6.4 % (0.0-3.0); HEMATOCRIT 40.2 % (42.0-52.0); HEMOGLOBIN 12.6 g/dl (13.5-17.5); LYMPH # 1.6 10^3/uL (1.5-5.0); LYMPH % 27.3 % (24.0-44.0); MEAN CORPUSCULAR HEMOGLOBIN 28.2 pg (27.0-33.0); MEAN CORPUSCULAR HGB CONC 31.3 g/dl (32.0-36.5); MEAN CORPUSCULAR VOLUME 89.9 fl (80.0-96.0); MONO # 0.4 10^3/uL (0.0-0.8); MONO % 6.7 % (2.0-8.0); NEUTROPHILS # 3.4 10^3/uL (1.5-8.5); NEUTROPHILS % 58.7 % (36.0-66.0); PLATELET COUNT, AUTOMATED 189 10^3/uL (150-450); RED BLOOD COUNT 4.47 10^6/uL (4.30-6.10); WHITE BLOOD COUNT 5.8 10^3/uL (4.0-10.0)
[2022-08-24 10:45] LABS: PROSTATIC SPECIFIC AG MONITOR 0.91 NG/ML (< 4.00)
[2022-08-24 10:48] LABS: ALBUMIN 3.9 G/DL (3.2-5.2); ALKALINE PHOSPHATASE 97 U/L (46-116); ALT/SGPT 19 U/L (7.0-40); AST/SGOT 14 U/L (<34); BILIRUBIN,TOTAL 0.4 MG/DL (0.3-1.2); BLOOD UREA NITROGEN 14 MG/DL (9-23); CALCIUM LEVEL 8.8 MG/DL (8.5-10.1); CARBON DIOXIDE LEVEL 31 MMOL/L (20-31); CHLORIDE LEVEL 105 MMOL/L (98-107); CHOLESTEROL LEVEL 150 MG/DL (<200); CHOLESTEROL RISK RATIO 3.82 (<5); CREATININE FOR GFR 0.66 MG/DL (0.70-1.30); GLOMERULAR FILTRATION RATE > 60.0 (>56); GLUCOSE, FASTING 89 MG/DL (60-100); HDL CHOLESTEROL 39.2 MG/DL (>40); LDL CHOLESTEROL 94.4 MG/DL (<100); NON-HDL-C 110.8 MG/DL; SODIUM LEVEL 141 MMOL/L (136-145); TOTAL PROTEIN 6.9 G/DL (5.7-8.2); TRIGLYCERIDES LEVEL 82 MG/DL (<150)
[2022-08-25 08:12] LABS: CARBAMAZEPINE (TEGRETOL) LEVEL 5.8 ug/mL (4.0-12.0)
== END ==
LOC: M WUC 08:18
PROVIDERS: ATTEND Family Medicine
DX: Z12.5 Encounter for screening for malignant neoplasm of prostate (principal); Z79.899 Other long term (current) drug therapy

== ENCOUNTER → 2023-04-03 | Outpatient (REF) | payer MEDICARE, MEDICAID ==
[~2023-04-03] MED LIST changes: +LORA1TAB23 PO; -LORA1TAB4 PO
[2023-04-03 16:59] LABS: APPEARANCE, URINE HAZY (CLEAR); BACTERIA, URINE AUTO 2+ (NEGATIVE); BILIRUBIN, URINE AUTO NEGATIVE (NEGATIVE); BLOOD, URINE BLOOD NEGATIVE (NEGATIVE); COLOR, URINE YELLOW (YELLOW); GLUCOSE, URINE (UA) AUTO NEGATIVE (NEGATIVE); KETONE, URINE AUTO NEGATIVE (NEGATIVE); LEUKOCYTE ESTERASE, URINE AUTO 2+ (NEGATIVE); MUCUS, URINE SMALL (NEGATIVE); NITRITE, URINE AUTO NEGATIVE (NEGATIVE); PROTEIN, URINE AUTO NEGATIVE (NEGATIVE); RBC, URINE AUTO 0 /HPF (0-3); SPECIFIC GRAVITY URINE AUTO 1.017 (1.002-1.035); SQUAMOUS EPITHELIAL CELL UR AU 0 /HPF (0-6); UROBILINOGEN, URINE AUTO 0.2 mg/dL (0.0-2.0); WBC, URINE AUTO 15 /HPF (0-3)
== END ==
LOC: M LAB REF 16:27
PROVIDERS: ATTEND Family Medicine
DX: R30.0 Dysuria (principal)

== ENCOUNTER 2023-06-27 19:07 | Emergency (ER) | payer MEDICARE, MEDICAID ==
[~2023-06-27 19:07] MED LIST changes: +RISP-105 PO; -RISP-8 PO
[2023-06-27 19:27] VITALS: TEMP 97.1
[2023-06-27 20:27] LABS: BASO % 0.2 % (0.0-1.0); EOS # 0.1 10^3/uL (0.0-0.5); EOS % 0.5 % (0.0-3.0); HEMATOCRIT 39.7 % (42.0-52.0); HEMOGLOBIN 13.3 g/dl (13.5-17.5); LYMPH # 0.6 10^3/uL (1.5-5.0); LYMPH % 5.3 % (24.0-44.0); MEAN CORPUSCULAR HEMOGLOBIN 28.1 pg (27.0-33.0); MEAN CORPUSCULAR HGB CONC 33.5 g/dl (32.0-36.5); MEAN CORPUSCULAR VOLUME 83.9 fl (80.0-96.0); MONO # 0.8 10^3/uL (0.0-0.8); MONO % 7.5 % (2.0-8.0); PLATELET COUNT, AUTOMATED 198 10^3/uL (150-450); RED BLOOD COUNT 4.73 10^6/uL (4.30-6.10); WHITE BLOOD COUNT 10.4 10^3/uL (4.0-10.0)
[2023-06-27 20:56] LABS: CK-MB VALUE MASS 4.1 NG/ML (<3.6)
[2023-06-27 20:57] LABS: ETHYL ALCOHOL (ETHANOL) < 0.003 % (0.000-0.010)
[2023-06-27 20:58] LABS: SALICYLATE LEVEL < 3.0 MG/DL (<30)
[2023-06-27 20:59] LABS: ALBUMIN 4.1 G/DL (3.2-5.2); ALKALINE PHOSPHATASE 113 U/L (46-116); ALT/SGPT 18 U/L (7.0-40); AST/SGOT 24 U/L (<34); BILIRUBIN,DIRECT 0.3 MG/DL (<0.4); BILIRUBIN,TOTAL 0.7 MG/DL (0.3-1.2); BLOOD UREA NITROGEN 18 MG/DL (9-23); CARBON DIOXIDE LEVEL 27 MMOL/L (20-31); CHLORIDE LEVEL 103 MMOL/L (98-107); CREATININE FOR GFR 0.77 MG/DL (0.70-1.30); GLOMERULAR FILTRATION RATE > 60.0 (>56); GLUCOSE, FASTING 107 MG/DL (60-100); POTASSIUM SERUM 4.2 MMOL/L (3.5-5.1); SODIUM LEVEL 137 MMOL/L (136-145); TOTAL PROTEIN 6.9 G/DL (5.7-8.2)
[2023-06-27 21:01] LABS: THYROID STIMULATING HORMONE 1.254 uIU/ML (0.55-4.78)
[2023-06-27 21:02] LABS: CPK CREATINE PHOSPHOKINASE 483 U/L (46-171); MB/CK RELATIVE INDEX 0.84 (< OR =4)
[2023-06-27 21:08] LABS: RSV AMPLIFICATION NEGATIVE (NEGATIVE)
[2023-06-27 22:45] VITALS: BP 145/77; O2SAT 96
== END 2023-06-27 22:49 | disposition home or self-care (01) ==
LOC: M ED 19:07
DX: R55 Syncope and collapse (principal); S62.322A Displaced fracture of shaft of third metacarpal bone, right hand, initial encounter for closed fracture; S62.324A Displaced fracture of shaft of fourth metacarpal bone, right hand, initial encounter for closed fracture; Y92.9 Unspecified place or not applicable; Y93.9 Activity, unspecified; Y99.9 Unspecified external cause status; R94.31 Abnormal electrocardiogram [ECG] [EKG]

== ENCOUNTER → 2023-09-19 | Outpatient (CLI) | payer MEDICARE, MEDICAID ==
[2023-09-19 12:03] LABS: BASO % 0.6 % (0.0-1.0); EOS # 0.3 10^3/uL (0.0-0.5); EOS % 6.8 % (0.0-3.0); HEMOGLOBIN 12.8 g/dl (13.5-17.5); LYMPH # 1.4 10^3/uL (1.5-5.0); LYMPH % 28.9 % (24.0-44.0); MEAN CORPUSCULAR HEMOGLOBIN 28.3 pg (27.0-33.0); MEAN CORPUSCULAR HGB CONC 32.8 g/dl (32.0-36.5); MEAN CORPUSCULAR VOLUME 86.3 fl (80.0-96.0); MONO # 0.6 10^3/uL (0.0-0.8); NEUTROPHILS # 2.6 10^3/uL (1.5-8.5); NEUTROPHILS % 52.5 % (36.0-66.0); PLATELET COUNT, AUTOMATED 204 10^3/uL (150-450); RED BLOOD COUNT 4.52 10^6/uL (4.30-6.10)
[2023-09-19 12:27] LABS: ALBUMIN 4.1 G/DL (3.2-5.2); ALKALINE PHOSPHATASE 117 U/L (46-116); ALT/SGPT 17 U/L (7.0-40); AST/SGOT 14 U/L (<34); BILIRUBIN,TOTAL 0.3 MG/DL (0.3-1.2); BLOOD UREA NITROGEN 13 MG/DL (9-23); CALCIUM LEVEL 9.4 MG/DL (8.5-10.1); CARBON DIOXIDE LEVEL 31 MMOL/L (20-31); CHLORIDE LEVEL 102 MMOL/L (98-107); CREATININE FOR GFR 0.66 MG/DL (0.70-1.30); GLOMERULAR FILTRATION RATE > 60.0 (>56); GLUCOSE, FASTING 75 MG/DL (60-100); PROSTATIC SPECIFIC AG MONITOR 0.65 NG/ML (< 4.00); SODIUM LEVEL 136 MMOL/L (136-145); TOTAL PROTEIN 7.1 G/DL (5.7-8.2)
== END ==
LOC: M WUC 08:30
PROVIDERS: ATTEND Family Medicine
DX: Z12.5 Encounter for screening for malignant neoplasm of prostate (principal); Z79.899 Other long term (current) drug therapy

== ENCOUNTER → 2023-10-10 | Outpatient (REF) | payer MEDICARE, MEDICAID ==
[2023-10-11 10:32] LABS: APPEARANCE, URINE HAZY (CLEAR); BACTERIA, URINE AUTO 3+ (NEGATIVE); BILIRUBIN, URINE AUTO NEGATIVE (NEGATIVE); BLOOD, URINE BLOOD NEGATIVE (NEGATIVE); COLOR, URINE YELLOW (YELLOW); GLUCOSE, URINE (UA) AUTO NEGATIVE (NEGATIVE); KETONE, URINE AUTO NEGATIVE (NEGATIVE); LEUKOCYTE ESTERASE, URINE AUTO TRACE (NEGATIVE); MUCUS, URINE SMALL (NEGATIVE); NITRITE, URINE AUTO NEGATIVE (NEGATIVE); PROTEIN, URINE AUTO NEGATIVE (NEGATIVE); RBC, URINE AUTO 0 /HPF (0-3); SPECIFIC GRAVITY URINE AUTO 1.017 (1.002-1.035); SQUAMOUS EPITHELIAL CELL UR AU 0 /HPF (0-6); WBC, URINE AUTO 9 /HPF (0-3)
== END ==
LOC: M LAB REF 19:43
PROVIDERS: ATTEND Family Medicine
DX: R30.0 Dysuria (principal)

== ENCOUNTER → 2023-11-04 | Outpatient (REF) | payer MEDICARE, MEDICAID ==
[2023-11-04 09:33] LABS: APPEARANCE, URINE CLEAR (CLEAR); BACTERIA, URINE AUTO NEGATIVE (NEGATIVE); BILIRUBIN, URINE AUTO NEGATIVE (NEGATIVE); BLOOD, URINE BLOOD NEGATIVE (NEGATIVE); COLOR, URINE YELLOW (YELLOW); GLUCOSE, URINE (UA) AUTO NEGATIVE (NEGATIVE); KETONE, URINE AUTO NEGATIVE (NEGATIVE); LEUKOCYTE ESTERASE, URINE AUTO NEGATIVE (NEGATIVE); NITRITE, URINE AUTO NEGATIVE (NEGATIVE); PROTEIN, URINE AUTO NEGATIVE (NEGATIVE); RBC, URINE AUTO 0 /HPF (0-3); SPECIFIC GRAVITY URINE AUTO 1.014 (1.002-1.035); SQUAMOUS EPITHELIAL CELL UR AU 0 /HPF (0-6); WBC, URINE AUTO 2 /HPF (0-3)
== END ==
LOC: M LAB REF 07:30
PROVIDERS: ATTEND Family Medicine
DX: R30.0 Dysuria (principal)

== ENCOUNTER → 2024-03-07 | Outpatient (REF) | payer MEDICARE, MEDICAID ==
[2024-03-07 17:33] LABS: APPEARANCE, URINE CLEAR (CLEAR); BACTERIA, URINE AUTO NEGATIVE (NEGATIVE); BILIRUBIN, URINE AUTO NEGATIVE (NEGATIVE); BLOOD, URINE BLOOD NEGATIVE (NEGATIVE); COLOR, URINE YELLOW (YELLOW); GLUCOSE, URINE (UA) AUTO NEGATIVE (NEGATIVE); KETONE, URINE AUTO NEGATIVE (NEGATIVE); LEUKOCYTE ESTERASE, URINE AUTO NEGATIVE (NEGATIVE); MUCUS, URINE SMALL (NEGATIVE); NITRITE, URINE AUTO NEGATIVE (NEGATIVE); PROTEIN, URINE AUTO NEGATIVE (NEGATIVE); RBC, URINE AUTO 0 /HPF (0-3); SQUAMOUS EPITHELIAL CELL UR AU 0 /HPF (0-6); WBC, URINE AUTO 1 /HPF (0-3)
== END ==
LOC: M LAB REF 16:22
PROVIDERS: ATTEND Family Medicine
DX: R30.0 Dysuria (principal)

== ENCOUNTER → 2024-04-10 | Outpatient (CLI) | payer MEDICARE, MEDICAID ==
[2024-04-10 11:20] LABS: BASO % 0.5 % (0.0-1.0); EOS # 0.2 10^3/uL (0.0-0.5); EOS % 5.2 % (0.0-3.0); HEMATOCRIT 35.5 % (42.0-52.0); LYMPH % 23.6 % (24.0-44.0); MEAN CORPUSCULAR HEMOGLOBIN 28.1 pg (27.0-33.0); MEAN CORPUSCULAR HGB CONC 33.8 g/dl (32.0-36.5); MEAN CORPUSCULAR VOLUME 83.1 fl (80.0-96.0); MONO # 0.6 10^3/uL (0.0-0.8); MONO % 14.2 % (2.0-8.0); NEUTROPHILS # 2.4 10^3/uL (1.5-8.5); NEUTROPHILS % 56.3 % (36.0-66.0); PLATELET COUNT, AUTOMATED 205 10^3/uL (150-450); RED BLOOD COUNT 4.27 10^6/uL (4.30-6.10); WHITE BLOOD COUNT 4.2 10^3/uL (4.0-10.0)
[2024-04-10 11:39] LABS: ALKALINE PHOSPHATASE 108 U/L (40-129); ALT/SGPT 11 U/L (7.0-40); AST/SGOT < 8 U/L (<34); BILIRUBIN,TOTAL 0.3 MG/DL (0.3-1.2); BLOOD UREA NITROGEN 10 MG/DL (9-23); CARBON DIOXIDE LEVEL 28 MMOL/L (20-31); CHLORIDE LEVEL 97 MMOL/L (98-107); CREATININE FOR GFR 0.57 MG/DL (0.70-1.30); GLOMERULAR FILTRATION RATE > 60.0 (>56); GLUCOSE, FASTING 58 MG/DL (60-100); POTASSIUM SERUM 4.5 MMOL/L (3.5-5.1); SODIUM LEVEL 130 MMOL/L (136-145)
== END ==
LOC: M WUC 08:35
PROVIDERS: ATTEND Family Medicine
DX: F99 Mental disorder, not otherwise specified (principal); Z79.899 Other long term (current) drug therapy

== ENCOUNTER → 2025-01-09 | Outpatient (REF) | payer MEDICARE, MEDICAID ==
[~2025-01-09] MED LIST changes: +TOPI-257; -TOPI100T9
[2025-01-09 16:52] LABS: APPEARANCE, URINE CLEAR (CLEAR); BACTERIA, URINE AUTO NEGATIVE (NEGATIVE); BILIRUBIN, URINE AUTO NEGATIVE (NEGATIVE); BLOOD, URINE BLOOD NEGATIVE (NEGATIVE); GLUCOSE, URINE (UA) AUTO NEGATIVE (NEGATIVE); KETONE, URINE AUTO NEGATIVE (NEGATIVE); LEUKOCYTE ESTERASE, URINE AUTO NEGATIVE (NEGATIVE); NITRITE, URINE AUTO NEGATIVE (NEGATIVE); PROTEIN, URINE AUTO NEGATIVE (NEGATIVE); RBC, URINE AUTO 0 /HPF (0-3); SPECIFIC GRAVITY URINE AUTO 1.016 (1.002-1.035); SQUAMOUS EPITHELIAL CELL UR AU 0 /HPF (0-6); UROBILINOGEN, URINE AUTO 0.2 mg/dL (0.0-2.0); WBC, URINE AUTO 1 /HPF (0-3)
== END ==
LOC: M LAB REF 15:11
PROVIDERS: ATTEND Family Medicine
DX: R30.0 Dysuria (principal)

== ENCOUNTER → 2025-04-09 | Outpatient (CLI) | payer MEDICARE, MEDICAID ==
[2025-04-09 13:04] LABS: BASO # 0.0 10^3/uL (0.0-0.2); BASO % 0.7 % (0.0-1.0); EOS # 0.4 10^3/uL (0.0-0.5); EOS % 7.4 % (0.0-3.0); LYMPH # 1.4 10^3/uL (1.5-5.0); LYMPH % 24.3 % (24.0-44.0); MONO # 0.6 10^3/uL (0.0-0.8); MONO % 9.8 % (2.0-8.0); NEUTROPHILS # 3.4 10^3/uL (1.5-8.5); NEUTROPHILS % 57.6 % (36.0-66.0); PLATELET COUNT, AUTOMATED 223 10^3/uL (150-450)
[2025-04-09 13:14] LABS: ALT/SGPT 13 U/L (7.0-40); AST/SGOT 18 U/L (<34); CALCIUM LEVEL 9.0 MG/DL (8.3-10.6); CARBON DIOXIDE LEVEL 28 MMOL/L (20-31); CHLORIDE LEVEL 97 MMOL/L (98-107); CREATININE FOR GFR 0.69 MG/DL (0.70-1.30); GLOMERULAR FILTRATION RATE > 90.0 (>49); POTASSIUM SERUM 5.0 MMOL/L (3.5-5.1); SODIUM LEVEL 135 MMOL/L (136-145)
== END ==
LOC: M WUC 08:32
PROVIDERS: ATTEND Psychiatry & Neurology Neurology
DX: R56.9 Unspecified convulsions (principal)

== ENCOUNTER → 2025-04-09 | Outpatient (CLI) | payer MEDICARE, MEDICAID ==
[2025-04-09 13:04] LABS: BASO # 0.0 10^3/uL (0.0-0.2); BASO % 0.5 % (0.0-1.0); EOS # 0.4 10^3/uL (0.0-0.5); EOS % 7.2 % (0.0-3.0); LYMPH # 1.5 10^3/uL (1.5-5.0); LYMPH % 24.8 % (24.0-44.0); MONO # 0.6 10^3/uL (0.0-0.8); MONO % 10.7 % (2.0-8.0); NEUTROPHILS # 3.4 10^3/uL (1.5-8.5); NEUTROPHILS % 56.6 % (36.0-66.0); PLATELET COUNT, AUTOMATED 232 10^3/uL (150-450)
[2025-04-09 13:13] LABS: ALT/SGPT 12 U/L (7.0-40); AST/SGOT 17 U/L (<34); CALCIUM LEVEL 8.8 MG/DL (8.3-10.6); CARBON DIOXIDE LEVEL 29 MMOL/L (20-31); CHLORIDE LEVEL 97 MMOL/L (98-107); CHOLESTEROL LEVEL 134 MG/DL (<200); CHOLESTEROL RISK RATIO 2.72 (<5); CREATININE FOR GFR 0.69 MG/DL (0.70-1.30); GLOMERULAR FILTRATION RATE > 90.0 (>49); LDL CHOLESTEROL 73.3 MG/DL (<100); NON-HDL-C 84.9 MG/DL; POTASSIUM SERUM 5.2 MMOL/L (3.5-5.1); PROSTATIC SPECIFIC AG MONITOR 0.81 NG/ML (< 4.00); SODIUM LEVEL 133 MMOL/L (136-145); TRIGLYCERIDES LEVEL 58 MG/DL (<150)
== END ==
LOC: M WUC 08:34
PROVIDERS: ATTEND Family Medicine
DX: G40.909 Epilepsy, unspecified, not intractable, without status epilepticus (principal); Z12.5 Encounter for screening for malignant neoplasm of prostate; Z79.899 Other long term (current) drug therapy